=== PATIENT | female | born 1945 | race Caucasian/White ===

== ENCOUNTER 2021-11-25 11:28 | Observation (INO) | payer MEDICARE, SELFPAY ==
[2021-11-25] VITALS (11 sets, daily range): BP systolic 125–182; BP diastolic 61–92; PULSE 53–85; RESP 14–17; TEMP 36.6–37; O2SAT 96–100
--- NOTE | 2021-11-25 11:15 | RT.EKG_ITS ---
APPROVED REPORT Exam: Resting ECG Reason for Exam: syncope Patient Location: E HR:65 bpm ECG Measurements Heart Rate 65 AXIS ND 116 P 67 QRSd 113 QRS 0 QT 432 T -88 QTc 450 Conclusion Sinus rhythm...normal P axis, V-rate 60- 99 Probable left atrial enlargement...P >50mS, <-0.10mV V1 Abnormal T, consider ischemia, diffuse leads...T <-0.20mV, ant/lat/inf
[2021-11-25 11:48] LABS: Abs Immature Grans 0.02 10^3/uL (0.0-0.06); Absolute Basophil Count 0.08 10^3/uL (0.0-0.2); Absolute Eosinophil Count 0.12 10^3/uL (0.0-0.7); Absolute Lymphocyte Count 1.16 10^3/uL (1.2-3.4); Absolute Monocyte Count 0.39 10^3/uL (0.1-0.8); Absolute Neutrophil Count 4.63 10^3/uL (1.2-6.7); Basophils % 1.3; Eosinophils % 1.9; HCT 47.4 % (36.0-46.0); HGB 15.6 g/dL (11.2-15.7); Immature Grans % 0.3; Lymphocytes % 18.1; MCH 30.6 pg (27.0-33.0); MCHC 32.9 % (32.0-36.0); MCV 93.1 fL (80-95); MPV 10.6 fL (8.0-11.0); Monocytes % 6.1; Neutrophils % 72.3; Nucleated RBC 0 %; Platelet Count 194 10^3/uL (130-400); RBC 5.09 10^6/uL (3.93-5.22); RDW 13.7 % (11.7-14.6); RDW-SD 47.7 fL
[2021-11-25 12:11] LABS: ALT 13 U/L (14-59); AST 10 U/L (15-37); Albumin 3.6 g/dL (3.4-5.0); Alkaline Phosphatase 98 U/L (46-116); Anion Gap 8.1 mmol/L (3-11); BUN 10 mg/dL (7-18); Bilirubin, Total 0.7 mg/dL (0.2-1.0); CO2 27.9 mmol/L (21.0-32.0); CREATININE 0.8 mg/dL (0.55-1.02); Calcium 8.6 mg/dL (8.5-10.1); Chloride 105 mmol/L (98-107); Glucose 127 mg/dL (74-106); Magnesium 1.8 mg/dL (1.8-2.4); Potassium 3.8 mmol/L (3.5-5.1); Sodium 141 mmol/L (136-145); TSH (W/Ref FT4) 1.74 uIU/mL (0.36-3.74); Total Protein 6.7 g/dL (6.4-8.2); Troponin I < 50 ng/L (<or=60)
--- NOTE | 2021-11-25 12:45 | DI.CT_ITS ---
Exam(s) CT HEAD WO EXAM: CT HEAD WO CLINICAL HISTORY: syncope, GALAVIZ, possible head injury. TECHNIQUE: Imaging Protocol: Axial computed tomography images with coronal and sagittal reformatted images were created and reviewed COMPARISON: No exams were available for comparison FINDINGS: There are no skull fractures nor fluid in the visualized paranasal sinuses. There is no evidence of intracranial hemorrhage, mass effect, or shift of midline structures. There are no extra-axial fluid collections. The ventricles are not enlarged or shifted and there is no blo od within the ventricular system nor within the basal cisterns. A moderate amount of periventricular hypodensity consistent chronic small vessel ischemic changes. T here is no obvious territorial ischemic infarct. IMPRESSION: Bilateral periventricular white matter hypodensity chronic small vessel disease. No obvious acute te rritorial infarction. No evidence of intracranial hemorrhage. If clinically indicated follow-up MRI can be performed. RADIATION DOSE DELIVERED: 664.1mGy.cm Total DLP DATA REPOSITORY: All CT scans at this facility are submitted to the National Radiology Data Registry (NRDR) Dose Index Registry (DIR) with the [employer] (A[employer]). RADIATION OPTIMIZATION: All CT scans at this facility use at least one of these dose optimization te chniques: automated exposure control; mA and/or kV adjustment per patient size (includes targeted exa ms where dose is matched to clinical indication); or iterative reconstruction.
--- OUTSIDE RECORDS SUMMARY | 2021-11-25 13:33 | XMS_ITS | Encounter Summary ---
:1945 Author Care Team Providers Name Role Phone Judith Nadja Primary Care Provider [phone] Bossman Harrington MD General Surgeon Unavailable Reason for Visit lab follow-up Assessment and Plan 1. Hyperlipidemia check lipids in 6 months to as sess CV risk. ? venipuncture 2. Hypertensive disorder BP controlled when rechecked a t 124/84. Continue current treatment Losartan 25 mg and metoprolol tartrate 100mg bid. Check renal functions in 6 months. ? CBC w/ auto diff ? TSH, serum or plasma ? CMP, serum or plasma Discussion Note: None recorded.Patient educational handouts: No information available. Plan of Care Reminders Provider Appointments [facility]ae[facility] ? Or 15 on or around [place], 05/04/2023 Lab CBC W/ Auto 10/27/2021 [facility] Lab (Internal) ? TSH, Serum or 10/27/2021 [facility] (Internal) ? CMP, Serum or 10/27/2021 [facility] (Internal) ? Venipuncture 10/27/2021 [facility] [place] [facility] Referral None recorded. ? ? Procedures None recorded. ? ? Surgeries None recorded. ? ? Imaging None recorded. ? ? Medications Name Start Date ? ? albuterol sulf 90 mcg/actuation breath activated powde r inhaler,sensor ? Inhale 2 puffs every 4 hours by inhalation route. albuterol sulfate HFA 90 mcg/actuation aerosol inhaler ? Inhale 2 puffs 3 times a day by inhalation route as n eeded for 30 days. aspirin 81 mg tablet,delayed release ? Take 2 tablets every day by oral route for 90 days. loratadine 10 mg tablet ? TAKE 1 TABLET BY MOUTH NEEDED lorazepam 0.5 mg tablet ? Take 1 tablet every 4-6 hours by oral route as needed for 10 days. losartan 25 mg tablet ? Take 1 tablet by mouth once daily metoprolol tartrate 50 mg tablet ? Take 1 tablet twice a day by oral route for 90 days. nitroglycerin 0.4 mg sublingual tablet ? 1 (one) SL Tab: Q 5 MIN X 3 PRN omeprazole 20 mg capsule,delayed release ? Take 1 capsule by mouth once daily Notes: medication reconciled Medications Administered None recorded. Vitals None recorded. Results Lab Results Date Name Specimen Result Interpretation Description Value Range Status Address ? 10/27/2021 CBC W/ Auto BLD ? Wbc 6.7 10*3/uL 5.0-10.0 F [place] Diff 10*3/uL [facility] (Internal) : [address] ? ? BLD ? Rbc 5.11 10*6/uL 4.10-5.30 Final N orth 10*6/uL [facility] (Internal) : [address] ? ? BLD ? Hgb 15.7 g/dL 12.0-16.0 Final Nort h g/dL [facility] (Internal) : [address] ? ? BLD High Hct 47.5 % 37.0-47.0 Final [facility] (Internal) : [address] ? ? BLD ? Mcv 93.0 fL 80.0-96.0 Final [facility] (Internal) : [address] ? ? BLD ? Mch 30.7 pg 26.0-32.0 Final [facility] (Internal) : [address] ? ? BLD ? Mchc 33.1 g/dL 31.0-35.0 Final Nort h g/dL [facility] (Internal) : [address] ? ? BLD ? Rdw 14.0 % 11.5-14.5 Final [facility] (Internal) : [address] ? ? BLD ? Plt 199 10*3/uL 130-450 Final Nort h 10*3/uL [facility] (Internal) : [address] ? ? BLD ? Anc 4.80 10*3/uL ? Final Nort [facility] (Internal) : [address] ? ? BLD High Nlr 3.53 0.00-3.20 Final [facility] (Internal) : [address] ? ? BLD ? Neutro 71.4 % 40.0-75.0 Final [facility] (Internal) : [address] ? ? BLD ? Lymph 20.2 % 20.0-50.0 Final [facility] (Internal) : [address] ? ? BLD ? [place] 5.7 % 2.0-10.0 Final [facility] (Internal) : [address] ? ? BLD ? Eos 1.5 % 1.0-6.0 % Final [facility] (Internal) : [address] ? ? BLD ? Baso 0.9 % 0.0-1.0 % Final [facility] (Internal) : [address] ? ? BLD ? Ig 0.3 % 0.0-0.9 % Final [facility] (Internal) : [address] 10/27/2021 CMP, Serum or S ? g/r 99 mg/dL 74-106 Marielle l North Plasma mg/dL [facility] (Internal) : [address] ? ? S ? Bun 8 mg/dL 7-18 Final North mg/dL [facility] (Internal) : [address] ? ? S ? Crea 0.7 mg/dL 0.6-1.0 Final North mg/dL [facility] (Internal) : [address] ? ? S ? Ca 9.0 mg/dL 8.5-10.1 Final [place] mg/dL [facility] (Internal) : [address] ? ? S ? Na 144 mmol/L 136-145 Final [place] mmol/L [facility] (Internal) : [address] ? ? S ? K 4.1 mmol/L 3.5-5.1 Final [place] mmol/L [facility] (Internal) : [address] ? ? S ? Cl 106 mmol/l 98-107 Final [place] mmol/l [facility] (Internal) : [address] ? ? S ? Tco2 28.2 mmol/L 21.0-32.0 Final No rth mmol/L [facility] (Internal) : [address] ? ? S Low Tp 6.1 g/dL 6.4-8.2 Final [place] g/dL [facility] (Internal) : [address] ? ? S ? Alb 3.6 g/dL 3.4-5.0 Final North g/dL [facility] (Internal) : [address] ? ? S ? Tbil 0.70 mg/dL 0.20-1.00 Final Nor th mg/dL [facility] (Internal) : [address] ? ? S ? Alp 88 U/L 46-116 Final North U/L [facility] (Internal) : [address] ? ? S Low Alt (Sgpt) 13 U/L 14-59 U/L Final [facility] : [address] ? ? S Low Ast (Sgot) 12 U/L 15-37 U/L Final No rth [facility] (Internal) : [address] 10/27/2021 TSH, Serum or S ? Tsh 2.55 uIU/mL 0.36-3.7 4 Final North Plasma uIU/mL [facility] (Internal) : [address] 10/27/2021 Venipuncture ? Location Right ? ? [facility] [place] [facility] [facility]: [address], [place] ? ? ? Needle 21g ? ? [facility] Prim lila Vacutainer [facility] [place] [facility]: [address], [place] ? ? ? Number of 1 ? ? [facility] P rimary Attempts Care [place]: [address], [place] ? ? ? Successful Yes ? ? [facility] [place] [facility] [facility]: [address], [place] ? ? ? Dressing Pressure ? ? [facility] Primary Band-aid Care Applied [place] [facility]: [address] ? ? ? Initials hj ? ? [facility] Pr imary Care [place] [facility]: [address] Allergies Code Code System Name Reaction Severity Onset Animal Dander ? ? ? Iodinated ? ? ? Contrast Media 7407 RxNorm Nicotine ? ? ? 7804 RxNorm Oxycodone ? ? ? 767062 RxNorm Vicodin ? ? ? Problems Name Status Onset Date Source ? Menopausal Symptom Active 04/30/2019 ? Allergic Rhinitis Active 05/15/2019 ? Tobacco User Active 04/22/2020 ? Basal Cell Carcinoma of Nose Active ? His tory Hypothyroidism Active ? History Mixed Hyperlipidemia Active ? History Hyperlipidemia Active ? History Nicotine Dependence Active ? History Insomnia Active ? History Restless Legs Active ? History Retinoschisis Active ? History Hypertensive Disorder Active ? History Conduction Disorder of the Heart Active ? History Kidney Stone Active ? History Blood in Urine Active ? History Epidermoid Cyst of Skin Active ? History Idiopathic Osteoarthritis Active ? Histor y Neck Pain Active ? History Cervical Radiculopathy Active ? History Disorder of Hyperalimentation Active ? Hi story Wheezing Active ? History Cough Active ? History Abdominal Pain Active ? History Prediabetes Active ? History Disorder of Skin And/or Subcutaneous Active ? History Tissue Family History of Cardiovascular Active ? History Disease Artificial Knee Joint Present Active ? Hi story Adult Health Examination Active ? History Finding of Esophagus Active ? History Trochanteric Bursitis of Left Hip Active ? History Pain of Left Shoulder Joint Active ? Hist ory Cardiac Arrhythmia Active ? History Procedures Date Name Performed by ? 05/04/2018 Colonoscopy Information not avai lable Notes: Polyp of cecum; 05/26/2004 09/01/2015 Total Knee Arthroplasty Information not available Notes: left 2015, right 201411/25/2006 Extracorporeal Shock Wave Lithotripsy In formation not available (ES[facility]) 08/22/2004 Arthroplasty Information not avai lable Notes: Left Thumb Arthroplasty 08/22/2000 Total Abdominal Hysterectomy Information not available Notes: w/ BSO ? Tonsillectomy Information not avai lable Vaccine List Vaccine Type COVID-19, mRNA, LNP-S, PF, 100 mcg/0.5 m L dose (Moderna) 10/21/2020?100 mcg 11/17/2020?100 mcg 07/23/2021 influenza, high dose seasonal 08/23/2017?0.5 mL 06/22/2018 06/05/2021 influenza, seasonal, injectable 07/21/2016?0.5 mL influenza, seasonal, injectable, preserv ative free 07/04/2013?0.5 mL 06/06/2014?0.5 mL 07/16/2015?0.5 mL pneumococcal conjugate PCV 13 07/21/2016?0.5 mL pneumococcal polysaccharide PPV23 04/18/2014?0.5 mL Tdap 03/30/2011?0.5 mL zoster live 06/28/2012?0.65 mL Social History Tobacco Smoking Status Heavy Tobacco Smoker (1/2 Notes: 1 pack/day since pack per day) Jun 2017, prior to t hat Pt was smoking 1/2 pack /day What is the highest grade or [id number] level of school you have completed or the highest degree you have received? Any signs of neglect or abuse? no signs of neglect or abuse noted Are you currently employed? N Have you used IV drugs? N Are you blind or do you have N Notes: w ears glasses difficulty seeing? Do you have smoke and carbon Y monoxide detectors in your home? What is your code status? 0 In the 14 days before symptom N onset, have you had close contact with a person who is under investigation for COVID-19 while that person was ill? How much tobacco do you chew? none What was the date of your most 05/25/2021 recent tobacco screening? Do you have an advanced N directive? Do you feel safe at home? Y Do you use any illicit or N recreational drugs? How many years have you smoked 27 tobacco? In the 14 days before symptom N onset, have you had close contact with a laboratory-confirmed COVID-19 while that case was ill? What is your level of alcohol Occasional consumption? Which of your hands is Right dominant? Did the fall result in an N injury? Do you have any pets? Y Notes: cat Have you been to an area known N to be high risk for COVID-19? What is your current pack 30ormorepackyears years? Are you deaf or do you have N serious difficulty hearing? Are you passively exposed to Y smoke? Do you or have you ever used N any other forms of tobacco or nicotine? What is your level of caffeine Occasional Notes: 1-2 cups in the consumption? am Have you recently traveled N abroad? Are there any guns present in Y your home? Have you fallen in the last 3 N months? Family History Relation Problem Onset Age of Age Notes Father Hyperlipidemia (No N/A (No Notes) Information) Father Heart disease (No N/A (No Notes) Information) Sister Cardiomyopathy (No N/A (No Notes) Information) Mother Atrial fibrillation (No N/A (No Note s) Information) Functional Status No Impairment. Past Encounters 10/27/2021 Hyperlipidemia; Hypertensive Disorder Judith Saez [employer]: [address], [place] [id number], Ph. History of Present Illness None recorded. Review of Systems None recorded. Physical Exam None recorded.
--- OUTSIDE RECORDS SUMMARY | 2021-11-25 13:33 | XMS_ITS ---
:1945 Author Care Team Providers Name Role Phone KATHERIN SAEZ Primary Care Provider [phone] JOHNSON UNDERWOOD MD General Surgeon Unavailable Allergies Code Code System Name Reaction Severity Status Onset Animal Dander ? ? Active ? Iodinated ? ? Active ? Contrast Media 7407 RxNorm Nicotine ? ? Active ? 7804 RxNorm Oxycodone ? ? Active ? 339070 RxNorm Vicodin ? ? Active ? Medications Name Status Start Date Stop Date ? ? albuterol sulf 90 mcg/actuation breath activated powder inhaler, sensor Active ? Not available Inhale 2 puffs every 4 hours by inhalation route. albuterol sulfate HFA 90 mcg/actuation aerosol inhaler Active ? Not available Inhale 2 puffs 3 times a day by inhalation route as needed for 30 days. amoxicillin 500 mg capsule Completed ? 10/30 amoxicillin 875 mg tablet Active ? Not av ailable Anoro Ellipta 62.5 mcg-25 mcg/actuation powder for inhalatio n Completed 10/12/2017 10/12/2017 1 (one) Puff: daily aspirin 81 mg tablet,delayed release Active ? Not available Take 2 tablets every day by oral route for 90 days. Aspirin Childrens 81 mg chewable tablet Completed 10/02/19 15 11/05/2014 2 (two) Tablet Chewable: daily azithromycin 250 mg tablet Completed ? 09/08 TAKE 2 TABLETS BY MOUTH ON DAY 1 AND TH EN TAKE 1 TABLET BY MOUTH ONCE A DAY ON DAY 2 THROUGH DAY 5 azithromycin 500 mg tablet Completed 09/21/201609/28 1 (one) Tablet: qd - daily benzonatate 200 mg capsule Completed 07/04/201707/14 1 (one) Capsule: tid - three times a day cefuroxime axetil 250 mg tablet Completed ? 04/13/2018 cefuroxime axetil 500 mg tablet Completed 09/28/2017 09/28/2017 1 (one) Tablet: bid - twice daily cephalexin 500 mg capsule Active ? Not av ailable Chantix Continuing Month Box 1 mg tablet Completed 008 10/13/2007 1 (one) Tablet: Daily Cipro 500 mg tablet Completed 11/26/2008 11/26/2008 1 Tablet: BID ciprofloxacin 250 mg tablet Completed 11/18/2016 04/01/2017 1 (one) Tablet: bid - twice daily Depo-Medrol 80 mg/mL suspension for injection Completed 04/18/2014 1 (one) Suspension: once Dilaudid 2 mg tablet Completed 11/16/2016 11/18/2016 1-2 Tablet: oral every 4 hours as needed donepezil 5 mg tablet Completed ? 06/30/2021 Take 1 tablet every day by oral route for 90 days. Estrace 0.5 mg tablet Completed ? 09/08/2020 1 (one) Tablet: daily flaxseed oil 1,000 mg capsule Completed 06/28/2012 1 Capsule: oral twice daily Flublok Quad (PF) 180 mcg (45 mcg x 4)/0.5 mL IM syrin ge Completed ? 04/03/2021 PHARMACIST ADMINISTERED IMMUNIZATION [facility] fluconazole 150 mg tablet Completed ? 2020 Guaifenesin AC 10 mg-100 mg/5 mL oral liquid Completed 08/14/2015 1 (one) Syrup Syrup: q 6 hours prn cough hydrochlorothiazide 25 mg tablet Completed ? 05/09/2018 one tablet once daily every 3 days ibuprofen 600 mg tablet Completed ? 07/04/20 20 ibuprofen 800 mg tablet Completed 01/02/2016 04/15/20 16 1 (one) Tablet: Three times daily as needed Lamisil 250 mg tablet Completed 06/29/2006 06/29/2006 1 (one) Tablet: Daily Lasix 20 mg tablet Completed ? 07/28/2021 Take 1 tablet every day by oral route at bedtime for 14 days. Levaquin 250 mg tablet Completed 02/13/2007 7 1 (one) Tablet: Daily Lexapro 10 mg tablet Completed 02/09/2008 02/09/2008 1 (one) Tablet: Daily lidocaine (PF) 10 mg/mL (1 %) injection solution Completed 03/27/2014 04/18/2014 1 (one) Solution: once Lipitor 40 mg tablet Completed 09/22/2005 12/29/2005 1 (one) Tablet: Daily lisinopril 5 mg tablet Completed 12/20/2011 2 1 (one) Tablet: daily loratadine 10 mg tablet Active ? Not avai lable TAKE 1 TABLET BY MOUTH NEEDED lorazepam 0.5 mg tablet Active ? Not avai lable Take 1 tablet every 4-6 hours by oral route as needed for 10 da ys. losartan 25 mg tablet Active ? Not availa ble Take 1 tablet by mouth once daily meclizine 12.5 mg tablet Completed ? 021 meclizine 25 mg tablet Completed ? 1 Take 1 tablet 3 times a day by oral route for 90 days. melatonin ER 3 mg tablet,extended release Completed ? 05/09/2018 Take 1 tablet every day by oral route as needed. metoprolol succinate ER 100 mg Completed ? 0 04/22/2020 tablet,extended release 24 hr metoprolol tartrate 100 mg tablet Completed ? 10/07/2021 metoprolol tartrate 50 mg tablet Active ? Not available Take 1 tablet twice a day by oral route for 90 days. Miralax 17 gram oral powder packet Completed 09/11/2015 01/12/2016 17g Packet Packet: by mouth bid nitroglycerin 0.4 mg sublingual tablet Active ? Not available 1 (one) SL Tab: Q 5 MIN X 3 PRN Norvasc 5 mg tablet Unknown 12/21/2005 Not availabl e 1 (one) Tablet: Daily omega 3-pop-gbt-fish oil 1,000 mg (120 mg-180 mg) capsule Comple ophelia 06/28/2012 06/28/2012 1 Capsule: oral twice per day omeprazole 20 mg capsule,delayed release Active ? Not available Take 1 capsule by mouth once daily Percocet 5 mg-325 mg tablet Completed 04/27/201004/22 1 (one) Tablet: every six hours, as needed potassium chloride ER 10 mEq tablet,extended release Completed 10/14/2014 01/12/2016 2 (two) Tablet ER: daily prednisone 10 mg tablet Completed 08/04/2015 08/20/20 15 1 (one) Tablet Tablet: See comments Premarin 0.625 mg tablet Completed 05/06/2010 09/15/2 010 1 (one) Tablet: daily Premarin 0.625 mg/gram vaginal cream Completed 08/31/2005 04/18/2006 1 (one) Not Specified: Daily prochlorperazine maleate 10 mg tablet Completed 06/28/2012 06/28/2012 1 (one) Tablet: Every 6 hours as needed Restasis 0.05 % eye drops in a dropperette Completed 06/2807/24/2014 1 Emulsion: one drop twice dialy ropinirole 0.5 mg tablet Completed 11/05/2014 015 1 (one) Tablet: nightly Sanctura XR 60 mg capsule,extended release Completed 07/2207/22/2008 1 (one) Capsule ER 24HR: daily Senna Plus 8.6 mg-50 mg tablet Completed 09/11/2015 0 01/12/2016 2 (two) Tablet Tablet: Bid - twice daily sertraline 25 mg tablet Completed ? 06/30/20 21 Take 1 tablet every day by oral route for 90 days. sulfacetamide sodium 10 % eye drops Completed 12/16/2005 04/18/2006 2 (two) Drop(s): Four times daily sulfamethoxazole 800 Completed ? 10/30/2018 mg-trimethoprim 160 mg tablet Synthroid 25 mcg tablet Completed 10/06/2004 09/22/19 06 1 (one) Tablet: Daily terconazole 0.8 % vaginal cream Completed 10/26/2016 11/16/2016 1 (one) Application: at bedtime x 3 venlafaxine ER 37.5 mg tablet,extended release 24 hr Completed 11/05/2014 11/20/2014 1 (one) Tablet ER 24HR: daily warfarin 5 mg tablet Completed 09/11/2015 01/12/2016 1 (one) Tablet Tablet: daily Wellbutrin SR 150 mg tablet, 12 hr sustained-release Completed 10/08/2005 04/18/2006 1 (one) Tablet ER 12HR: BID Xanax 0.5 mg tablet Completed 11/19/2008 11/19/2008 1 Tablet: three times daily as needed Zofran 4 mg tablet Completed ? 05/25/2021 1 (one) Tablet: Four times daily as needed for nausea for 10 da ys Zyrtec 10 mg capsule Completed ? 05/15/2019 Take 1 capsule as needed by oral route at bedtime. Notes: medication reconciled Problems Name Status Onset Date Source ? [...] Active ? History Prediabetes Active ? History Active Immunization Unknown ? History History of Urinary Tract Infection Unknown ? History Disorder of Skin And/or Subcutaneous Active ? History Tissue Family History of Cardiovascular Active ? History Disease Artificial Knee Joint Present Active ? Hi story Psychosexual Counseling Unknown ? History Adult Health Examination Active ? History SNOMED CT Concept Unknown ? History Finding of Esophagus Active ? History Procedure Unknown ? History Disorder of Ear Unknown ? History Sulema Infection of Genital Region Unknown ? History Procedure by Method Unknown ? History Trochanteric Bursitis of Left Hip Active ? History Pain of Left Shoulder Joint Active ? Hist ory Cardiac Arrhythmia Active ? History Procedure Unknown ? History Procedures Date Name Performed by ? 05/04/2018 Colonoscopy Information not eliane mccarthy Notes: Polyp of cecum; 05/26/2004 09/01/2015 Total Knee Arthroplasty Information not available Notes: left 2015, right 201411/25/2006 Extracorporeal Shock Wave Lithotripsy In formation not available (ESWL) 08/22/2004 Arthroplasty Information not eliane mccarthy Notes: Left Thumb Arthroplasty 08/22/2000 Total Abdominal Hysterectomy Information not available Notes: w/ BSO ? Tonsillectomy Information not avai lable 04/22/2020 MAMMO, Screening, Tomosynthesis, [facility] (Internal) Bilateral [address] [place] [address] (Work Place) 07/18/2020 XR, Shoulder, 2 or More View [facility] Radiology (Internal) [address] [place] [address] (Work Place) 09/08/2020 Electrocardiogram P[facility]nc [facility] [place] [address] [place] [address] (Work Place) 09/08/2020 Event Monitor [facility] Cardio pulmonary [address] [place] [address] (Work Place) 05/25/2021 MAMMO, Screening, Tomosynthesis, [facility] (Internal) Bilateral [address] [place] [address] (Work Place) 05/25/2021 US, Carotid Artery [facility] Radiology (Internal) [address] [place] [address] (Work Place) 05/25/2021 US, Echocardiogram, Transthoracic, [facility] Radiology (Internal) Complete [address] [place] [address] (Work Place) 05/26/2021 US, Echocardiogram, Transthoracic, [facility] (Internal) Bubble Study [address] [place] [address] (Work Place) 07/06/2021 US, Head + Neck, Soft Tissue [facility] Radiology (Internal) [address] [place] [address] (Work Place) Results Lab Results Date Name Specimen Result Interpretation Description Value Range Status Address ? 10/27/2021 CBC W/ Auto BLD ? Wbc 6.7 10*3/uL 5.0-10.0 F inal [place] Diff 10*3/uL [facility] L ab (Internal) : [address] ? ? BLD ? Rbc 5.11 10*6/uL 4.10-5.30 Final N orth 10*6/uL [facility] L ab (Internal) : [address] ? ? BLD ? Hgb 15.7 g/dL 12.0-16.0 Final Nort h g/dL [facility] L ab (Internal) : [address] ? ? BLD High Hct 47.5 % 37.0-47.0 Final [facility] L ab (Internal) : [address], [place] ? ? BLD ? Mcv 93.0 fL 80.0-96.0 Final [facility] L ab (Internal) : [address] ? ? BLD ? Mch 30.7 pg 26.0-32.0 Final [facility] L ab (Internal) : [address] ? ? BLD ? Mchc 33.1 g/dL 31.0-35.0 [facility] L [facility] (Internal) : [address] ? ? BLD ? Rdw 14.0 % 11.5-14.5 Final [facility] L ab (Internal) : [address] ? ? BLD ? Plt 199 10*3/uL 130-450 Final Nort h 10*3/uL [facility] L ab (Internal) : [address] ? ? BLD ? Anc 4.80 10*3/uL ? Final Nort h [facility] L ab (Internal) : [address] ? ? BLD High Nlr 3.53 0.00-3.20 Final [facility] L ab (Internal) : [address] ? ? BLD ? Neutro 71.4 % 40.0-75.0 Final [facility] L ab (Internal) : [address] ? ? BLD ? Lymph 20.2 % 20.0-50.0 Final [facility] L ab (Internal) : [address] ? ? BLD ? [place] 5.7 % 2.0-10.0 Final [facility] L ab (Internal) : [address] ? ? BLD ? Eos 1.5 % 1.0-6.0 % Final [facility] L ab (Internal) : [address] ? ? BLD ? Baso 0.9 % 0.0-1.0 % Final [facility] L ab (Internal) : [address] ? ? BLD ? Ig 0.3 % 0.0-0.9 % Final [facility] L ab (Internal) : [address] t 10/27/2021 Lipid Panel, S High Chol 214 mg/dL 0-200 Marielle l North Serum mg/dL [facility] (Internal) : [address] ? ? S ? Trig 114 mg/dL 0-150 Final North mg/dL [facility] (Internal) : [address] ? ? S ? Hdl 49 mg/dL 40-60 Final North mg/dL [facility] (Internal) : [address] ? ? S High Ldl 142 mg/dL 0-130 Final [place] mg/dL [facility] (Internal) : [address] t 10/27/2021 CMP, Serum S ? g/r 99 mg/dL 74-106 Final [place] or Plasma mg/dL [facility] (Internal) : [address] ? ? S ? Bun 8 mg/dL 7-18 Final North mg/dL [facility] (Internal) : [address] ? ? S ? Crea 0.7 mg/dL 0.6-1.0 Final North mg/dL [facility] (Internal) : [address] ? ? S ? Ca 9.0 mg/dL 8.5-10.1 Final [place] mg/dL [facility] (Internal) : [address] ? ? S ? Na 144 mmol/L 136-145 Final North mmol/L [facility] (Internal) : [address] ? ? S ? K 4.1 mmol/L 3.5-5.1 Final North mmol/L [facility] (Internal) : [address] ? ? S ? Cl 106 mmol/l 98-107 Final [place] mmol/l [facility] (Internal) : [address] ? ? S ? Tco2 28.2 mmol/L 21.0-32.0 Final No rth mmol/L [facility] (Internal) : [address] ? ? S Low Tp 6.1 g/dL 6.4-8.2 Final [place] g/dL [facility] (Internal) : [address] ? ? S ? Alb 3.6 g/dL 3.4-5.0 Final [place] g/dL [facility] L ab (Internal) : [address] ? ? S ? Tbil 0.70 mg/dL 0.20-1.00 Final Nor th mg/dL [facility] L ab (Internal) : [address] ? ? S ? Alp 88 U/L 46-116 Final North U/L [facility] L ab (Internal) : [address] ? ? S Low Alt (Sgpt) 13 U/L 14-59 U/L Final No rth [facility] L [facility] (Internal) : [address] ? ? S Low Ast (Sgot) 12 U/L 15-37 U/L Final No rth [facility] L ab (Internal) : [address] 10/27/2021 TSH, Serum S ? Tsh 2.55 uIU/mL 0.36-3.74 F inal North or Plasma uIU/mL [facility] L ab (Internal) : [address] 10/27/2021 Venipuncture ? Location Right ? ? P_nc Primary Antecubital Care [place]: [address] [facility], [place] ? ? ? Needle 21g ? ? P_nc Prim lila Vacutainer Care [place]: [address] [facility] [place] ? ? ? Number of 1 ? ? P_nc P rimary Attempts Care [place]: [address] [facility] [place] ? ? ? Successful Yes ? ? P_nc Primary Care [place]: [address] [facility], [place] ? ? ? Dressing Pressure ? ? P_nc Primary Band-aid Care Applied [place]: [address] [facility], [place] ? ? ? Initials hj ? ? P_nc Pr imary Care [place]: [address] [facility] [place] 06/25/2021 CBC W/ Auto BLD ? Wbc 9.0 10*3/uL 5.0-10.0 F inal [place] Diff 10*3/uL [facility] L [facility] (Internal) : [address] ? ? BLD ? Rbc 4.93 10*6/uL 4.10-5.30 Final N orth 10*6/uL [facility] L ab (Internal) : [address] ? ? BLD ? Hgb 15.4 g/dL 12.0-16.0 Final Nort h g/dL [facility] L [facility] (Internal) : [address] ? ? BLD ? Hct 46.1 % 37.0-47.0 Final [facility] L [facility] (Internal) : [address] ? ? BLD ? Mcv 93.5 fL 80.0-96.0 Final [facility] (Internal) : [address] ? ? BLD ? Mch 31.2 pg 26.0-32.0 Final [facility] L ab (Internal) : [address] ? ? BLD ? Mchc 33.4 g/dL 31.0-35.0 Final Nort h g/dL [facility] L ab (Internal) : [address] ? ? BLD ? Rdw 14.3 % 11.5-14.5 Final [facility] (Internal) : [address] ? ? BLD ? Plt 207 10*3/uL 130-450 Final Nort h 10*3/uL [facility] L [facility] (Internal) : [address] ? ? BLD ? Anc 6.59 10*3/uL ? Final Nort h [facility] L ab (Internal) : [address] ? ? BLD High Nlr 3.83 0.00-3.20 Final [facility] L ab (Internal) : [address] ? ? BLD ? Neutro 73.5 % 40.0-75.0 Final [facility] L ab (Internal) : [address] ? ? BLD Low Lymph 19.2 % 20.0-50.0 Final [facility] L ab (Internal) : [address] ? ? BLD ? [place] 4.8 % 2.0-10.0 Final [facility] L ab (Internal) : [address] ? ? BLD ? Eos 1.4 % 1.0-6.0 % Final [facility] L ab (Internal) : [address] ? ? BLD ? Baso 0.8 % 0.0-1.0 % Final [facility] L ab (Internal) : [address] ? ? BLD ? Ig 0.3 % 0.0-0.9 % Final [facility] L ab (Internal) : [address] 06/25/2021 BNP (B-type S High Nt-bnp 1343 pg/mL 0-125 Fin al North Natriuretic pg/mL Count ry Peptide), Hospita l Lab Prohormone (Inter nal): N-terminal, [address] Immunoassay, Blood 06/25/2021 CMP, Serum S ? g/r 106 mg/dL 74-106 Final North or Plasma mg/dL [facility] (Internal) : [address] ? ? S ? Bun 12 mg/dL 7-18 Final North mg/dL [facility] L [facility] (Internal) : [address] ? ? S ? Crea 0.8 mg/dL 0.6-1.0 Final [place] mg/dL [facility] (Internal) : [address] ? ? S ? Ca 8.7 mg/dL 8.5-10.1 Final North mg/dL [facility] L ab (Internal) : [address] ? ? S ? Na 145 mmol/L 136-145 Final North mmol/L [facility] L ab (Internal) : [address] ? ? S ? K 4.1 mmol/L 3.5-5.1 Final North mmol/L [facility] (Internal) : [address] ? ? S High Cl 108 mmol/l 98-107 Final North mmol/l [facility] L ab (Internal) : [address] ? ? S ? Tco2 29.2 mmol/L 21.0-32.0 Final No rth mmol/L [facility] (Internal) : [address] ? ? S Low Tp 6.2 g/dL 6.4-8.2 Final North g/dL [facility] (Internal) : [address] ? ? S ? Alb 3.4 g/dL 3.4-5.0 Final North g/dL [facility] L ab (Internal) : [address] ? ? S ? Tbil 0.90 mg/dL 0.20-1.00 Final Nor th mg/dL [facility] L ab (Internal) : [address] ? ? S ? Alp 85 U/L 46-116 Final North U/L [facility] L ab (Internal) : [address] ? ? S Low Alt (Sgpt) 9 U/L 14-59 U/L Final No rth [facility] L ab (Internal) : [address] ? ? S Low Ast (Sgot) 13 U/L 15-37 U/L Final No rth [facility] L ab (Internal) : [address] 06/25/2021 Troponin I, S ? Trop 7.20 pg/mL 0.00-60.4 F [facility] Serum or 0 pg/mL [facility] L ab (Internal) : [address] t 06/25/2021 TSH, Serum S ? Tsh 1.40 uIU/mL 0.36-3.74 F [facility] or Plasma uIU/mL [facility] L ab (Internal) : [address] t 05/19/2021 CBC W/ Auto BLD ? Wbc 7.6 10*3/uL 5.0-10.0 F [facility] Diff 10*3/uL [facility] L ab (Internal) : [address] ? ? BLD ? Rbc 4.88 10*6/uL 4.10-5.30 Final N orth 10*6/uL [facility] L ab (Internal) : [address] ? ? BLD ? Hgb 15.2 g/dL 12.0-16.0 Final Nort h g/dL [facility] L ab (Internal) : [address] ? ? BLD ? Hct 46.9 % 37.0-47.0 Final [place] % [facility] L ab (Internal) : [address] ? ? BLD High Mcv 96.1 fL 80.0-96.0 Final [facility] L ab (Internal) : [address] ? ? BLD ? Mch 31.1 pg 26.0-32.0 Final [facility] L ab (Internal) : [address] ? ? BLD ? Mchc 32.4 g/dL 31.0-35.0 [facility] L [facility] (Internal) : [address] ? ? BLD High Rdw 14.6 % 11.5-14.5 Final [facility] L ab (Internal) : [address] ? ? BLD ? Plt 222 10*3/uL 130-450 Final Nort h 10*3/uL [facility] L ab (Internal) : [address] ? ? BLD ? Anc 5.15 10*3/uL ? Final Nort h [facility] L ab (Internal) : [address] ? ? BLD ? Nlr 3.05 0.00-3.20 Final [facility] L ab (Internal) : [address] ? ? BLD ? Neutro 67.9 % 40.0-75.0 Final [facility] L ab (Internal) : [address] ? ? BLD ? Lymph 22.3 % 20.0-50.0 Final [facility] L ab (Internal) : [address] ? ? BLD ? [place] 7.3 % 2.0-10.0 Final [facility] L ab (Internal) : [address] ? ? BLD ? Eos 1.3 % 1.0-6.0 % Final [facility] L ab (Internal) : [address] ? ? BLD ? Baso 0.8 % 0.0-1.0 % Final [facility] L ab (Internal) : [address] ? ? BLD ? Ig 0.4 % 0.0-0.9 % Final [facility] L ab (Internal) : [address] t 05/19/2021 CMP, Serum S ? g/r 92 mg/dL 74-106 Final North or Plasma mg/dL [facility] (Internal) : [address] ? ? S ? Bun 11 mg/dL 7-18 Final North mg/dL [facility] (Internal) : [address] ? ? S ? Crea 0.7 mg/dL 0.6-1.0 Final North mg/dL [facility] (Internal) : [address] ? ? S ? Ca 8.6 mg/dL 8.5-10.1 Final North mg/dL [facility] (Internal) : [address] ? ? S High Na 146 mmol/L 136-145 Final North mmol/L [facility] (Internal) : [address] ? ? S ? K 4.7 mmol/L 3.5-5.1 Final North mmol/L [facility] (Internal) : [address] ? ? S High Cl 109 mmol/l 98-107 Final North mmol/l [facility] (Internal) : [address] ? ? S ? Tco2 31.1 mmol/L 21.0-32.0 Final No rth mmol/L [facility] (Internal) : [address] ? ? S ? Tp 6.4 g/dL 6.4-8.2 Final North g/dL [facility] (Internal) : [address] ? ? S ? Alb 3.4 g/dL 3.4-5.0 Final North g/dL [facility] (Internal) : [address] ? ? S ? Tbil 0.60 mg/dL 0.20-1.00 Final Nor th mg/dL [facility] (Internal) : [address] ? ? S ? Alp 73 U/L 46-116 Final North U/L [facility] (Internal) : [address] ? ? S Low Alt (Sgpt) 8 U/L 14-59 U/L Final No rth [facility] (Internal) : [address] ? ? S Low Ast (Sgot) 10 U/L 15-37 U/L Final No rth [facility] L [facility] (Internal) : [address] 09/08/2020 CBC W/ Auto BLD ? Wbc 8.2 10*3/uL 5.0-10.0 F inal North Diff 10*3/uL [facility] L [facility] (Internal) : [address] ? ? BLD ? Rbc 5.14 10*6/uL 4.10-5.30 Final N orth 10*6/uL [facility] L ab (Internal) : [address] ? ? BLD ? Hgb 15.7 g/dL 12.0-16.0 Final Nort h g/dL [facility] L ab (Internal) : [address] ? ? BLD High Hct 48.8 % 37.0-47.0 Final [facility] L ab (Internal) : [address] ? ? BLD ? Mcv 94.9 fL 80.0-96.0 Final [facility] (Internal) : [address] ? ? BLD ? Mch 30.5 pg 26.0-32.0 Final [facility] L ab (Internal) : [address] ? ? BLD ? Mchc 32.2 g/dL 31.0-35.0 Final Nort h g/dL [facility] L [facility] (Internal) : [address] ? ? BLD ? Rdw 13.9 % 11.5-14.5 Final [facility] L ab (Internal) : [address] ? ? BLD ? Plt 252 10*3/uL 130-450 Final Nort h 10*3/uL [facility] L [facility] (Internal) : [address] ? ? BLD ? Anc 5.62 10*3/uL ? Final Nort h [facility] L ab (Internal) : [address] ? ? BLD ? Nlr 2.94 0.00-3.20 Final [facility] L ab (Internal) : [address] ? ? BLD ? Neutro 68.4 % 40.0-75.0 Final North % [facility] (Internal) : [address] ? ? BLD ? Lymph 23.3 % 20.0-50.0 Final North % [facility] (Internal) : [address] ? ? BLD ? [place] 5.1 % 2.0-10.0 Final [facility] (Internal) : [address] ? ? BLD ? Eos 1.7 % 1.0-6.0 % Final [facility] L ab (Internal) : [address] ? ? BLD ? Baso 1.0 % 0.0-1.0 % Final [facility] [facility] L [facility] (Internal) : [address] ? ? BLD ? Ig 0.5 % 0.0-0.9 % Final [facility] L ab (Internal) : [address] t 09/08/2020 BMP, Serum S ? g/r 95 mg/dL 74-106 Final [facility] or [facility] mg/dL [facility] : [address] ? ? S ? Bun 9 mg/dL 7-17 Final [facility] mg/dL [facility] : [address] ? ? S ? Crea 0.70 mg/dL 0.52-1.04 Final Nor th mg/dL [facility] ([facility]) : [address] ? ? S ? Ca 9.2 mg/dL 8.4-10.2 Final [facility] mg/dL [facility] ([facility] : [address] ? ? S ? Na 141 mmol/L 137-145 Final [facility] mmol/L [facility] ([facility] : [address] ? ? S ? K 4.2 mmol/L 3.5-5.1 Final [facility] mmol/L [facility] ([facility]) : [address] ? ? S ? Cl 104 mmol/L 98-107 Final [facility] mmol/L [facility] ([facility] : [address] ? ? S ? Tco2 29.0 mmol/L 22.0-30.0 Final No rth mmol/L [facility] ([facility]) : [address] t 09/08/2020 Thyroid S ? Tsh 2.08 u[IU]/mL 0.47-4.68 Fi nal [place], u[IU]/mL [facility] Serum Hospital L ab (Internal) : [address] 09/08/2020 Electrocardi ? Rate & 50. sinus ? ? P_nc Primary ogram Rhythm pramod [facility] [place]: [address], [place] ? ? ? Qrs 0.10 ? ? P_nc Prima ry [facility] [place]: [address], [place] ? ? ? CT 0.10 ? ? P_nc Prima ry Interval [facility] [place]: [address], [place] ? ? ? QT 0.46 ? ? P_nc Prima ry Interval [facility] [place]: [address], [place] 04/22/2020 Urinalysis, ? Color Mackenzie ? ? P _nc Primary Dipstick, Care Reflex Micro [place]: [address], [place] ? ? ? Appearance Clear ? ? P_nc Primary [facility] [place]: [address], [place] ? ? ? Glucose Normal ? ? P_nc Aisha kati [facility] [place]: [address], [place] ? ? ? Bilirubin Small ? ? P_nc P rimary [facility] [place]: [address], [place] ? ? ? Ketones Negative ? ? P_nc P rimary [facility] [place]: [address], [place] ? ? ? Specific 1.030 ? ? P_nc Pr imary [facility] [place]: [address], [place] ? ? ? Blood Negative ? ? P_nc Aisha kati [facility] [place]: [address], [place] ? ? ? Ph 7.0 ? ? P_nc Prima ry [facility] [place]: [address], [place] ? ? ? Protein Negative ? ? P_nc P rimary [facility] [place]: [address], [place] ? ? ? Urobilinog 0.2 ? ? P_nc Primary en [facility] [place]: [address], [place] ? ? ? Nitrite negative ? ? P_nc P rimary [facility] [place]: [address], [place] ? ? ? Leukocyte Negative ? ? P_nc Primary Esterase [facility] [place]: [address], [place] 10/18/2019 Lipid Panel, S ? Chol 193 mg/dL 50-200 Marielle l [facility] Serum mg/dL [facility] : [address] ? ? S ? Trig 93 mg/dL 10-150 Final [facility] mg/dL [facility] ([facility]) : [address] ? ? S ? Hdl 50 mg/dL 40-60 Final [facility] mg/dL [facility] ([facility] : [address] ? ? S ? Ldl 124 mg/dL 0-130 Final [facility] mg/dL [facility] ([facility]) : [address] 10/18/2019 CMP, Serum S High g/r 108 mg/dL 74-106 Final [place] or Plasma mg/dL [facility] ([facility] : [address] ? ? S ? Bun 11 mg/dL 7-17 Final [facility] mg/dL [facility] ([facility] : [address] ? ? S ? Crea 0.60 mg/dL 0.52-1.04 Final [facility] th mg/dL [facility] ([facility] : [address] ? ? S ? Ca 8.9 mg/dL 8.4-10.2 Final [facility] mg/dL [facility] : [address] ? ? S ? Na 140 mmol/L 137-145 Final [facility] mmol/L [facility] : [address] ? ? S ? K 3.6 mmol/L 3.5-5.1 Final [facility] mmol/L [facility] : [address] ? ? S ? Cl 107 mmol/L 98-107 Final [facility] mmol/L [facility] : [address] ? ? S ? Tco2 24.0 mmol/L 22.0-30.0 Final No rth mmol/L [facility] ([facility]) : [address] ? ? S Low Tp 6.2 g/dL 6.3-8.2 Final [place] g/dL [facility] L ab (Internal) : [address] ? ? S ? Alb 3.8 g/dL 3.5-5.0 Final [place] g/dL [facility] L ab (Internal) : [address] ? ? S ? Tbil 0.7 mg/dL 0.2-1.3 Final [place] mg/dL [facility] L [facility] (Internal) : [address] ? ? S ? Alp 72 U/L 38-126 Final [place] U/L [facility] L ab (Internal) : [address] ? ? S ? Alt (Sgpt) 10 U/L 9-52 U/L Final [facility] : [address] ? ? S ? Ast (Sgot) 19 U/L 14-36 U/L Final [facility] rth [facility] : [address] 10/27/2018 CBC W/ Auto BLD - Wbc 9.2 10*3/uL 5.0-10.0 F inal [place] Diff 10*3/uL [facility] ([facility] : [address] ? ? BLD - Rbc 5.27 10*6/uL 4.10-5.30 Final N orth 10*6/uL [facility] ([facility] : [address] ? ? BLD High Hgb 16.1 g/dL 12.0-16.0 Final Nort h g/dL [facility] ([facility]) : [address] ? ? BLD High Hct 48.2 % 37.0-47.0 Final [place] % [facility] L ab (Internal) : [address] ? ? BLD - Mcv 91.5 fL 80.0-96.0 Final [facility] L ab (Internal) : [address] ? ? BLD - Mch 30.6 pg 26.0-32.0 Final [place] pg [facility] L ab (Internal) : [address] ? ? BLD - Mchc 33.4 g/dL 31.0-35.0 Final Nort h g/dL [facility] L [facility] (Internal) : [address] ? ? BLD - Rdw 14.2 % 11.5-14.5 Final [facility] L ab (Internal) : [address] ? ? BLD - Plt 280 10*3/uL 130-450 Final Nort h 10*3/uL [facility] L ab (Internal) : [address] ? ? BLD - Anc 6.86 10*3/uL ? Final Nort h [facility] L ab (Internal) : [address] ? ? BLD - Neutro 74.7 % 40.0-75.0 Final [facility] L ab (Internal) : [address] ? ? BLD Low Lymph 17.3 % 20.0-50.0 Final [facility] L ab (Internal) : [address] ? ? BLD - [place] 5.3 % 2.0-10.0 Final [facility] L ab (Internal) : [address] ? ? BLD - Eos 1.3 % 1.0-6.0 % Final [facility] L ab (Internal) : [address] ? ? BLD - Baso 0.9 % 0.0-1.0 % Final [facility] L ab (Internal) : [address] ? ? BLD - Ig 0.5 % 0.0-0.9 % Final [facility] L [facility] (Internal) : [address] 10/27/2018 CMP, Serum S High g/r 108 mg/dL 74-106 Final [place] or Plasma mg/dL [facility] L ab (Internal) : [address] ? ? S - Bun 10 mg/dL 7-17 Final [place] mg/dL [facility] L ab (Internal) : [address] ? ? S - Crea 0.60 mg/dL 0.52-1.04 Final Nor th mg/dL [facility] ([facility] : [address] ? ? S - Ca 9.0 mg/dL 8.4-10.2 Final [facility] mg/dL [facility] ([facility] : [address] ? ? S - Na 140 mmol/L 137-145 Final [facility] mmol/L [facility] : [address] ? ? S - K 4.0 mmol/L 3.5-5.1 Final [facility] mmol/L [facility] ([facility]) : [address] ? ? S - Cl 103 mmol/L 98-107 Final [facility] mmol/L [facility] ([facility]) : [address] ? ? S - Tco2 28.0 mmol/L 22.0-30.0 Final No rth mmol/L [facility] (Internal) : [address] ? ? S - Tp 6.9 g/dL 6.3-8.2 Final [facility] g/dL [facility] ([facility] : [address] ? ? S - Alb 4.0 g/dL 3.5-5.0 Final [facility] g/dL [facility] : [address] ? ? S - Tbil 0.9 mg/dL 0.2-1.3 Final [facility] mg/dL [facility] ([facility] : [address] ? ? S - Alp 74 U/L 38-126 Final [facility] U/L [facility] : [address] ? ? S - Alt (Sgpt) <10 U/L 9-52 U/L Final [facility] ([facility] : [address] ? ? S - Ast (Sgot) 18 U/L 14-36 U/L Final [facility]th [facility] ([facility] : [address] 10/27/2018 Lipid Panel, S - Chol 180 mg/dL 50-200 Marielle l [facility] Serum mg/dL [facility] (Internal) : [address] ? ? S - Trig 137 mg/dL 10-150 Final [place] mg/dL [facility] L ab (Internal) : [address] ? ? S Low Hdl 37 mg/dL 40-60 Final [place] mg/dL [facility] L ab (Internal) : [address] ? ? S - Ldl 116 mg/dL 0-130 Final [place] mg/dL [facility] L ab (Internal) : [address] 10/27/2018 TSH, Serum S - Tsh 1.83 u[IU]/mL 0.47-4.68 Final [place] or Plasma u[IU]/mL [facility] L [facility] (Internal) : [address] 07/26/2018 Culture UR - Final microbiology ? Final [place] ([place] results [facility] Lab Urine (Internal) : [address] 05/04/2018 Pathology TISS - Report results below ? Fi nal [facility] L ab (Internal) : [address] 04/07/2017 CBC W/ Auto BLD ? Wbc 7.0 10*3/uL 5.0-10.0 F inal [place] Diff 10*3/uL [facility] L ab (Internal) : [address] ? ? BLD ? Rbc 4.96 10*6/uL 4.10-5.30 Final N orth 10*6/uL [facility] L ab (Internal) : [address] ? ? BLD ? Hgb 15.3 g/dL 12.0-16.0 Final Nort h g/dL [facility] L ab (Internal) : [address] ? ? BLD ? Hct 46.3 % 37.0-47.0 Final [place] % [facility] L ab (Internal) : [address] ? ? BLD ? Mcv 93.3 fL 80.0-96.0 Final [facility] : [address] ? ? BLD ? Mch 30.8 pg 26.0-32.0 Final [place] pg [facility] L ab (Internal) : [address] ? ? BLD ? Mchc 33.0 g/dL 31.0-35.0 Final Nort h g/dL [facility] L ab (Internal) : [address] ? ? BLD High Rdw 14.6 % 11.5-14.5 Final [facility] L ab (Internal) : [address] ? ? BLD ? Plt 217 10*3/uL 130-450 Final Nort h 10*3/uL [facility] L ab (Internal) : [address] ? ? BLD ? Anc 4.61 10*3/uL ? Final Nort h [facility] L ab (Internal) : [address] ? ? BLD ? Neutro 65.9 % 40.0-75.0 Final [facility] L ab (Internal) : [address] ? ? BLD ? Lymph 24.6 % 20.0-50.0 Final [facility] L ab (Internal) : [address] ? ? BLD ? [place] 6.4 % 2.0-10.0 Final [facility] L ab (Internal) : [address] ? ? BLD ? Eos 1.7 % 1.0-6.0 % Final [facility] L ab (Internal) : [address] ? ? BLD ? Baso 1.0 % 0.0-1.0 % Final [facility] L ab (Internal) : [address] ? ? BLD ? Ig 0.4 % 0.0-0.9 % Final [facility] L ab (Internal) : [address] 04/07/2017 TSH, Serum S ? Tsh 2.10 u[IU]/mL 0.47-4.68 Final [place] or Plasma u[IU]/mL [facility] (Internal) : [address] 04/07/2017 CMP, Serum S ? g/r 97 mg/dL 74-106 Final [place] or Plasma mg/dL [facility] L ab (Internal) : [address] ? ? S ? Bun 13 mg/dL 7-17 Final [place] mg/dL [facility] L ab (Internal) : [address] ? ? S ? Crea 0.70 mg/dL 0.52-1.04 Final Nor th mg/dL [facility] (Internal) : [address] ? ? S ? Ca 9.1 mg/dL 8.4-10.2 Final [facility] mg/dL [facility] (Internal) : [address] ? ? S ? Na 141 mmol/L 137-145 Final [facility] mmol/L [facility] ([facility]) : [address] ? ? S ? K 4.1 mmol/L 3.5-5.1 Final [facility] mmol/L [facility] (Internal) : [address] ? ? S ? Cl 106 mmol/L 98-107 Final [facility] mmol/L [facility] (Internal) : [address] ? ? S ? Tco2 28.0 mmol/L 22.0-30.0 Final No rth mmol/L [facility] (Internal) : [address] ? ? S ? Tp 6.5 g/dL 6.3-8.2 Final [facility] g/dL [facility] (Internal) : [address] ? ? S ? Alb 4.0 g/dL 3.5-5.0 Final [facility] g/dL [facility] (Internal) : [address] ? ? S ? Tbil 0.8 mg/dL 0.2-1.3 Final [facility] mg/dL [facility] (Internal) : [address] ? ? S ? Alp 78 U/L 38-126 Final [facility] U/L [facility] ([facility]) : [address] ? ? S ? Alt (Sgpt) 18 U/L 9-52 U/L Final [facility] ([facility] : [address] ? ? S ? Ast (Sgot) 24 U/L 14-36 U/L Final No [facility]th [facility] (Internal) : [address] 11/16/2016 Culture, UR ? Final microbiology ? Final [facility] Urine results [facility] (Internal) : [address] 11/16/2016 sensitivitie MISC ? Sens* ? ? Final North s[I] [facility] ab (Internal) : [address] ? Venipuncture ? Location Right Hand ? ? P_nc Primary [facility] [place]: [address], [place] ? ? ? Needle 23g Butterfly ? ? P_ nc Primary [facility] [place]: [address] [...] Care Applied [place]: [address], [place] ? ? ? Initials hj ? ? P_nc Pr imary [facility] [place]: [address], [place] ? Venipuncture ? Location Right Hand ? ? P_nc Primary [facility] [place]: [address], [place] ? ? ? Needle 23g Butterfly ? ? P_ nc Primary [facility] [place] [facility]: [address] [...] Care Applied [place]: [address], [place] ? ? ? Initials hj ? ? P_nc Pr imary [facility] [place]: [address], [place] ? Urinalysis, ? Color Yellow ? ? P_nc Primary Dipstick, Care Reflex Micro [place]: [address], [place] ? ? ? Appearance Clear ? ? P_nc Primary [facility] [place]: [address], [place] ? ? ? Glucose Normal ? ? P_nc Aisha kati [facility] [place]: [address], [place] ? ? ? Bilirubin Small ? ? P_nc P rimary [facility] [place]: [address], [place] ? ? ? Ketones Trace ? ? P_nc Aisha kati [facility] [place]: [address], [place] ? ? ? Specific 1.020 ? ? P_nc Pr imary [facility] [place]: [address], [place] ? ? ? Blood Negative ? ? P_nc Aisha kati [facility] [place] [facility]: [address], [place] ? ? ? Ph 7.0 ? ? P_nc Prima ry Care [place] [facility]: [address], [place] ? ? ? Protein Negative ? ? P_nc P rimary [facility] [place] [facility] [facility]: [address], [place] ? ? ? Urobilinog 1 ? ? P_nc Primary en [facility] [place]: [address], [place] ? ? ? Nitrite negative ? ? P_nc P rimary [facility] [place] [facility] [facility]: [address], [place] ? ? ? Leukocyte Negative ? ? P_nc Primary Esterase [facility] [place]: [address], [place] ? Visual ? R Eye 20/20 ? ? P_nc Prima ry Acuity* Corrected [facility] [place] [facility]: [address], [place] ? ? ? L Eye 20/20 ? ? P_nc Prima ry Corrected Care [place] [facility] [facility]: [address], [place] ? Urinalysis, ? Color Yellow ? ? P_nc Primary Dipstick, Care Reflex [facility] [place]: [address], [place] ? ? ? Appearance Clear ? ? P_nc Primary [facility] [place] [facility] [facility]: [address], [place] ? ? ? Glucose Normal ? ? P_nc Aisha kati [facility] [place] [facility]: [address], [place] ? ? ? Bilirubin Small ? ? P_nc P rimary [facility] [place]: [address], [place] ? ? ? Ketones Negative ? ? P_nc P rimary [facility] [place] [facility] [facility]: [address], [place] ? ? ? Specific 1.025 ? ? P_nc Pr imary [facility] [place] [facility]: [address], [place] ? ? ? Blood Negative ? ? P_nc Aisha kati [facility] [place] [facility]: [address], [place] ? ? ? Ph 6.0 ? ? P_nc Prima ry Care [place] [facility] [facility]: [address], [place] ? ? ? Protein Negative ? ? P_nc P rimary Care [place] [facility] [facility]: [address], [place] ? ? ? Urobilinog 0.2 ? ? P_nc Primary en [facility] [place] [facility] [facility]: [address], [place] ? ? ? Nitrite negative ? ? P_nc P rimary [facility] [place]: [address], [place] ? ? ? Leukocyte Negative ? ? P_nc Primary Esterase [facility] [place]: [address], [place] Past Encounters 10/27/2021 Hyperlipidemia; Hypertensive Disorder Katherin Saez, LIP READING TEACHER: [address], [place] [address], Ph. 07/28/2021 Wheezing; Chest Pain; Cough Katherin Saez, LIP READING TEACHER: [address], [place] [address], Ph. 06/30/2021 Tight Chest; Congestive Heart Failure; I ntermittent Palpitations Katherin Saez, LIP READING TEACHER: [address], [place] [address], Ph. 05/25/2021 Active or Passive Immunization; Adult He alth Examination; Transient Cerebral Ischemia; Mild Cognitive Disorder; Anxiety Katherin Saez LIP READING TEACHER: [address], [place] [address], Ph. 05/19/2021 Hypertensive Disorder Katherin Saez LIP READING TEACHER: [address], [place] [address], Ph. 04/06/2021 Anxiety; Vertigo; Dupuytren's Contractur e; Multiple Actinic Keratoses Katherin Saez, LIP READING TEACHER: [address], [place] [address], Ph. 04/01/2021 Foreign Body of Foot Jerrell Melgoza, DO: [address], [place] [address], Ph. 11/14/2020 Hypertensive Disorder; Hyperlipidemia; A ctinic Keratosis; Intermittent Palpitations Katherin Saez, LIP READING TEACHER: [address], [place] [address], Ph. 09/08/2020 Intermittent Palpitations; Anxiety Katherin Saez, LIP READING TEACHER: [address], [place] [address], Ph. 07/18/2020 Pain of Right Shoulder Joint Katherin Saez, LIP READING TEACHER: [address], [place] [address], Ph. 07/04/2020 Acute Otitis Media; Candidiasis of Vagin a Katherin Saez, LIP READING TEACHER: [address], [place] [address], Ph. Social History Tobacco Smoking Status Heavy Tobacco Smoker (1/2 Notes: 1 pack/day since Nov pack per day) 2017, prior to that Pt was smoking 1/2 pack/day Vaccine List Vaccine Type COVID-19, mRNA, LNP-S, PF, 100 mcg/0.5 m L dose (Moderna) 10/21/2020?100 mcg 11/17/2020?100 mcg 07/23/2021 influenza, high dose seasonal 08/23/2017?0.5 mL 06/22/2018 06/05/2021 influenza, seasonal, injectable 07/21/2016?0.5 mL influenza, seasonal, injectable, preserv ative free 07/04/2013?0.5 mL 06/06/2014?0.5 mL 07/16/2015?0.5 mL pneumococcal conjugate PCV 13 07/21/2016?0.5 mL pneumococcal polysaccharide PPV23 04/18/2014?0.5 mL Tdap 03/30/2011?0.5 mL zoster live 06/28/2012?0.65 mL Plan of Care Reminders Provider Appointments None ? ? recorded. Lab None ? ? recorded. Referral None ? ? recorded. Procedures None ? ? recorded. Surgeries None ? ? recorded. Imaging None ? ? recorded. Vitals 07/28/2021 09:20AM Follow Up 20 Height Weight BMI Blood Pressure 161.29 cm 103.87 kg 39.9 kg/m2 128/78 mm[Hg] 06/30/2021 09:00AM Follow Up 20 Height Weight BMI Blood Pressure 161.29 cm 105.23 kg 40.5 kg/m2 142/80 mm[Hg] 05/25/2021 09:40AM AWV 40 Height Weight BMI Blood Pressure 161.29 cm 107.27 kg 41.2 kg/m2 144/82 mm[Hg] 04/06/2021 03:00PM Follow Up 20 Height 161.29 cm 04/01/2021 03:40PM Acute 20 Height Weight BMI Blood Pressure 161.29 cm 148/86 mm[Hg] 11/14/2020 09:20AM Follow Up 20 Height Weight BMI Blood Pressure 161.29 cm 108.89 kg 41.9 kg/m2 158/88 mm[Hg] 09/08/2020 09:40AM Acute 20 Height Weight BMI Blood Pressure 161.29 cm 109.94 kg 42.3 kg/m2 174/88 mm[Hg] 07/18/2020 02:00PM Acute 20 Height Weight BMI Blood Pressure 161.29 cm 109.06 kg 41.9 kg/m2 146/84 mm[Hg] 07/04/2020 08:40AM Follow Up 20 Height Weight BMI Blood Pressure 161.29 cm 108.55 kg 41.7 kg/m2 142/90 mm[Hg] 04/22/2020 09:00AM CPE 40 Height Weight BMI Blood Pressure 161.29 cm 106.59 kg 41 kg/m2 120/70 mm[Hg] 10/22/2019 09:20AM Follow Up 20 Height Weight BMI Blood Pressure 161.29 cm 109.49 kg 42.1 kg/m2 138/88 mm[Hg] 04/30/2019 08:40AM Follow Up 20 Height Weight BMI Blood Pressure 161.29 cm 107.95 kg 41.5 kg/m2 138/80 mm[Hg] 01/03/2019 10:00AM Acute 20 Height Weight BMI Blood Pressure 161.29 cm 107.5 kg 41.3 kg/m2 152/88 mm[Hg] 10/30/2018 09:40AM AWV 40 Height Weight BMI Blood Pressure 161.29 cm 106.59 kg 41 kg/m2 120/92 mm[Hg] 07/26/2018 12:40PM Acute 20 Height Weight BMI Blood Pressure 161.29 cm 108.41 kg 41.7 kg/m2 144/86 mm[Hg] 05/09/2018 08:00AM Follow Up 20 Height Weight BMI Blood Pressure 161.29 cm 107.05 kg 41.1 kg/m2 138/78 mm[Hg] 04/13/2018 12:45PM Office 15 Height 161.29 cm 11/09/2017 Blood Pressure 130/80 mm[Hg] 10/12/2017 Blood Pressure 122/82 mm[Hg] 09/28/2017 Height Weight Blood Pressure 161.29 cm 105.69 kg 120/80 mm[Hg] 09/16/2017 Blood Pressure 120/72 mm[Hg] 08/23/2017 Height Weight Blood Pressure 161.29 cm 106.59 kg 130/80 mm[Hg] 08/02/2017 Height Weight Blood Pressure 161.29 cm 107.95 kg 140/80 mm[Hg] 07/04/2017 Weight Blood Pressure 97.07 kg 162/92 mm[Hg] 04/07/2017 Height Weight Blood Pressure 161.29 cm 108.41 kg 138/86 mm[Hg] 02/02/2017 Height Weight Blood Pressure 161.29 cm 108.41 kg 146/80 mm[Hg] 12/16/2016 Height Weight Blood Pressure 161.29 cm 107.95 kg 140/80 mm[Hg] 11/16/2016 Height Weight Blood Pressure 161.29 cm 108.41 kg 110/80 mm[Hg] 09/21/2016 Height Weight Blood Pressure 161.29 cm 107.95 kg 130/70 mm[Hg] 07/21/2016 Height Weight Blood Pressure 161.29 cm 108.41 kg 138/90 mm[Hg] 04/15/2016 Height Weight Blood Pressure 160.02 cm 107.95 kg 138/90 mm[Hg] 01/14/2016 Height Weight Blood Pressure 160.02 cm 106.14 kg 132/78 mm[Hg] 01/12/2016 Height Weight Blood Pressure 160.02 cm 105.69 kg 125/70 mm[Hg] 11/05/2015 Height Weight Blood Pressure 160.02 cm 104.78 kg 140/72 mm[Hg] 08/04/2015 Height Blood Pressure 160.02 cm 160/88 mm[Hg] 07/14/2015 Height Weight Blood Pressure 160.02 cm 108.86 kg 138/84 mm[Hg] 05/28/2015 Height Weight Blood Pressure 160.02 cm 105.69 kg 130/80 mm[Hg] 05/21/2015 Height Weight Blood Pressure 160.02 cm 105.69 kg 132/82 mm[Hg] 04/16/2015 Height Weight Blood Pressure 160.02 cm 107.27 kg 148/72 mm[Hg] 03/03/2015 Height Weight Blood Pressure 160.02 cm 105.69 kg 136/78 mm[Hg] 12/04/2014 Weight Blood Pressure 106.59 kg 124/74 mm[Hg] 11/05/2014 Weight Blood Pressure 102.97 kg 126/76 mm[Hg] 10/02/2014 Weight Blood Pressure 105.69 kg 128/84 mm[Hg] 09/13/2014 Weight Blood Pressure 107.68 kg 100/60 mm[Hg] 08/06/2014 Weight Blood Pressure 107.5 kg (1) 124/78 mm[Hg] (2) 142/86 mm[Hg] 07/24/2014 Weight Blood Pressure 108.86 kg 140/86 mm[Hg] 06/06/2014 Height Weight Blood Pressure 160.02 cm 108.86 kg 138/88 mm[Hg] 04/18/2014 Weight Blood Pressure 112.94 kg 138/82 mm[Hg] 03/27/2014 Weight Blood Pressure 115.62 kg 130/78 mm[Hg] 01/04/2014 Weight Blood Pressure 115.62 kg 146/78 mm[Hg] 01/03/2014 Weight Blood Pressure 115.21 kg 126/86 mm[Hg] 01/01/2014 Weight Blood Pressure 115.21 kg 130/84 mm[Hg] 11/20/2013 Weight Blood Pressure 116.35 kg 148/82 mm[Hg] 09/25/2013 Weight Blood Pressure 114.94 kg 136/80 mm[Hg] 07/04/2013 Height Weight Blood Pressure 160.02 cm 113.53 kg 138/76 mm[Hg] 04/18/2013 Weight Blood Pressure 113.13 kg 148/78 mm[Hg] 01/01/2013 Height Weight Blood Pressure 160.02 cm 111.63 kg 122/72 mm[Hg] 07/31/2012 Weight Blood Pressure 110.9 kg 124/68 mm[Hg] 06/28/2012 Height Weight Blood Pressure 160.02 cm 109 kg 150/90 mm[Hg] 05/09/2012 Height Weight Blood Pressure 160.02 cm 109.68 kg 164/88 mm[Hg] 03/24/2012 Height Weight Blood Pressure 160.02 cm 109.68 kg 173/97 mm[Hg] 02/04/2012 Height Weight Blood Pressure 160.02 cm 109.68 kg 156/90 mm[Hg] 12/27/2011 Height Weight Blood Pressure 160.02 cm 109.68 kg 148/84 mm[Hg] 11/24/2011 Weight Blood Pressure 110.36 kg (1) 166/96 mm[Hg] (2) 172/100 mm[Hg] 03/30/2011 Height Weight Blood Pressure 160.66 cm 108.23 kg (1) 158/88 mm[Hg] (2) 160/90 mm[Hg] 05/06/2010 Blood Pressure 142/84 mm[Hg] 04/22/2010 Weight Blood Pressure 107.86 kg 150/92 mm[Hg] 11/28/2009 Weight Blood Pressure 112.49 kg (1) 142/98 mm[Hg] (2) 144/90 mm[Hg] 09/19/2009 Weight Blood Pressure 111.13 kg 140/88 mm[Hg] 03/19/2009 Weight Blood Pressure 109.77 kg (1) 150/90 mm[Hg] (2) 140/82 mm[Hg] 12/11/2008 Weight Blood Pressure 109.32 kg (1) 138/82 mm[Hg] (2) 150/92 mm[Hg] 11/19/2008 Blood Pressure 126/80 mm[Hg] 11/18/2008 Weight Blood Pressure 109.09 kg 130/80 mm[Hg] 07/22/2008 Weight Blood Pressure 108.86 kg 152/90 mm[Hg] 02/09/2008 Weight Blood Pressure 112.49 kg 160/90 mm[Hg] 12/22/2007 Weight Blood Pressure 109.32 kg 124/78 mm[Hg] 11/14/2007 Weight Blood Pressure 109.77 kg (1) 140/90 mm[Hg] (2) 140/100 mm[Hg] 10/18/2007 Weight Blood Pressure 110.22 kg 138/76 mm[Hg] 10/13/2007 Weight Blood Pressure 107.95 kg 160/90 mm[Hg] 02/13/2007 Weight Blood Pressure 106.59 kg (1) 120/80 mm[Hg] (2) 130/80 mm[Hg] 10/26/2006 Weight Blood Pressure 107.05 kg 144/86 mm[Hg] 06/29/2006 Weight Blood Pressure 107.5 kg (1) 152/84 mm[Hg] (2) 162/86 mm[Hg] 06/17/2006 Weight Blood Pressure 105.69 kg (1) 138/80 mm[Hg] (2) 138/78 mm[Hg] 04/18/2006 Weight Blood Pressure 107.95 kg 144/82 mm[Hg] 12/29/2005 Blood Pressure 104/64 mm[Hg] 12/21/2005 Weight Blood Pressure 109.77 kg (1) 142/78 mm[Hg] (2) 144/82 mm[Hg] 12/16/2005 Weight Blood Pressure 109.77 kg 122/78 mm[Hg] 10/08/2005 Weight Blood Pressure 108.86 kg 116/68 mm[Hg] 09/21/2005 Weight Blood Pressure 108.41 kg (1) 136/90 mm[Hg] (2) 140/90 mm[Hg] 08/31/2005 Weight Blood Pressure 109.32 kg (1) 164/96 mm[Hg] (2) 156/90 mm[Hg] 06/14/2005 Weight Blood Pressure 107.05 kg 150/86 mm[Hg] 02/24/2005 Weight Blood Pressure 107.95 kg 146/94 mm[Hg] 10/06/2004 Height Weight Blood Pressure 161.29 cm 109.32 kg 140/88 mm[Hg]
--- NOTE | 2021-11-25 13:55 | ED.GENADUL_ITS ---
Discharge Plan Disposition Patient Disposition: [facility] INPATIENT Condition: Serious Discharge Details Clinical Impression: Syncope Primary Care Provider: Judith Saez ED Provider: Hill Chavez Home Meds and New Rx's Prescriptions: No Action losartan 25 mg Tablet 25 mg PO DAILY 0RF metoprolol tartrate 50 mg Tablet 50 mg PO BID 0RF aspirin 81 mg Tablet 81 mg PO 0RF lorazepam 0.5 mg Tablet 0.5 mg PO PRN PRN0RF loratadine 10 mg Tablet 10 mg PO DAILY PRN0RF Medical Decision Making 1400 --76-year-old female smoker with history of hypertension, here after syncopal episode that occurred while she was walking around grocery store. She has no associated chest pain or shortness of breath. Patient is mildly hypertensive. Patient is saturating well in no respiratory distress. EKG was reviewed and interpreted by me: T wave inversions noted in lead II, III, aVF, V4 and V5, subtle ST depression noted lead aVF, V4 to V6. Plan to check tropnin and trend. Continuous traffic monitor specialist was reviewed by me and reveals normal sinus rhythm. We will obtain CT of the head given recent headache and possible head trauma with fall. 1453 -- CT head interpreted by radiology: IMPRESSION: Bilateral periventricular white matter hypodensity chronic small vessel disease.? No obvious acute territorial infarction.? No evidence of intracranial hemorrhage. If clinically indicated follow-up MRI can be performed. --Plan for hospitalization for continued telemetry. I spoke with Dr. Umanzor, on- call hospitalist, discussed ED presentation course, she will admit the patient. HPI General Mode of arrival: EMS . Date/Time Provider Initiated Documentation: 11/25/21 11:31 . Limitations to Documentation: no limitations . Information obtained by: patient . HPI Narrative: 76-year-old female presents with chief complaint of syncope. Patient notes she was at a grocery store and suddenly felt like she was in a pass out and lost consciousness and fell to the floor. Syncope was severe with no modifiers. She does not recall fall. She thinks she landed on her buttocks. Patient is not sure if she hit her head. She does have mild headache. Patient notes mild headache over the past 2 weeks. No associated numbness or tingling. No focal weakness. Patient denies associated chest pain or shortness of breath. She denies leg swelling or calf pain. Patient notes she is feeling better now. Related Data Home Medications Medication Instructions Recorded Confirmed aspirin 81 mg tablet 81 mg PO 11/25/21 loratadine 10 mg tablet 10 mg PO DAILY PRN 11/25/21 11/25/21 lorazepam 0.5 mg tablet 0.5 mg PO PRN PRN 11/25/21 11/25/21 losartan 25 mg tablet 25 mg PO DAILY 11/25/21 11/25/21 metoprolol tartrate 50 mg tablet 50 mg PO BID 11/25/21 11/25/21 Allergies Allergy/AdvReac Type Severity Reaction Status Date / Time Iodine and Iodide Containing Allergy Severe Anaphylaxis Unverified 11/25/21 11:47 Produc iodine Allergy Unverified 11/25/21 11:47 codeine AdvReac Mild Nausea Unverified 11/25/21 11:59 oxycodone [From OxyContin] AdvReac Mild Nausea Unverified 11/25/21 11:59 General Stated Complaint: Dizzy/Sync MISTI: 2 Review of Systems All systems reviewed & are unremarkable except as noted in HPI and below Constitutional Constitutional: Denies fever(s) Cardiovascular Cardiovascular: Denies chest pain and Denies dyspnea Respiratory Respiratory: Denies cough and Denies dyspnea Gastrointestinal Gastrointestinal: Denies abdominal pain PFSH All Active Problems (Updated 11/25/21 @ 16:11 by Hill Chavez MD) Syncope (Chronic) Social History Smoking/Tobacco Use Status: Current every day Tobacco Type: cigarettes Smoking risk assessment performed?: Yes Substance use type: does not use Do you feel safe at home: Yes Do you feel safe in your relationship?: Yes Exam Const General: cooperative and no acute distress [facility] Head: normocephalic and atraumatic Mouth: moist mucous membranes Eyes Conjunctivae: normal conjunctivae Sclera: normal sclerae EOM: nystagmus Neck Neck: trachea midline and supple Resp Auscultation: clear to auscultation bilaterally, no rales, no rhonchi and no wheezes Cardio Rate: regular rate and not tachycardic Rhythm: regular rhythm Heart Sounds: no murmurs GI Palpation: soft, not firm, no guarding, no masses, not rigid and nontender Skin General skin exam: no rashes or lesions noted Neuro General: patient alert, patient awake, patient oriented x3 and tone normal Cranial Nerves: CN's II-XI intact bilaterally and nystagmus horizontal fast component to the left Cognition: normal cognition Speech: speech normal Motor: strength 5/5 throughout Sensory Exam: no sensory deficits noted Coordination: [id number] test normal and [id number] test normal Other: Rapid alternating movements intact Extrem General: no calf tenderness bilaterally and no edema Psych Appearance: grossly normal Mental Status: mental status grossly normal Speech and Movement: speech and movement normal Course Vital Signs Vital signs: Vital Signs Temperature 36.7 C 11/25/21 11:23 Pulse 70 11/25/21 11:23 Respiratory Rate 17 11/25/21 11:23 Blood Pressure 170/92 H 11/25/21 11:23 Pulse Oximetry 98 11/25/21 11:23 Temperature 36.7 C 11/25/21 11:23 Temperature Source Skin 11/25/21 11:23 Pulse 59 L 11/25/21 13:05 Respiratory Rate 15 11/25/21 13:05 Respiratory Effort 11/25/21 12:06 Respiratory Depth Normal 11/25/21 11:33 Respiratory Pattern Normal 11/25/21 11:33 Blood Pressure 161/61 H 11/25/21 13:05 Pulse Oximetry 98 11/25/21 13:05 Oxygen Delivery Method Room Air 11/25/21 11:23 Oxygen Flow Rate 0 11/25/21 11:23 Pain Level 1 11/25/21 11:23 Comment 11/25/21 11:23 Lab/Test Results Lab/Test Results: Laboratory Tests Range/Units 11/25/21 11/25/21 11:40 11:40 WBC (4.4-10.8) 10^3/uL 6.40 RBC (3.93-5.22) 10^6/uL 5.09 Hgb (11.2-15.7) g/dL 15.6 Hct (36.0-46.0) % 47.4 H MCV (80-95) fL 93.1 MCH (27.0-33.0) pg 30.6 MCHC (32.0-36.0) % 32.9 RDW (11.7-14.6) % 13.7 Plt Count (130-400) 10^3/uL 194 MPV (8.0-11.0) fL 10.6 Immature Gran % 0.3 Neutrophils % 72.3 Lymphocytes % 18.1 Monocytes % 6.1 Eosinophils % 1.9 Basophils % 1.3 Nucleated RBC % % 0 Absolute Neutrophils (1.2-6.7) 10^3/uL 4.63 Absolute Lymphocytes (1.2-3.4) 10^3/uL 1.16 L Absolute Monocytes (0.1-0.8) 10^3/uL 0.39 Absolute Eosinophils (0.0-0.7) 10^3/uL 0.12 Absolute Basophils (0.0-0.2) 10^3/uL 0.08 Sodium (136-145) mmol/L 141 Potassium (3.5-5.1) mmol/L 3.8 Chloride (98-107) mmol/L 105 Carbon Dioxide (21.0-32.0) mmol/L 27.9 Anion Gap (3-11) mmol/L 8.1 BUN (7-18) mg/dL 10 Creatinine (0.55-1.02) mg/dL 0.8 Estimated GFR/1.73 m2 (mL/min/1.73m2) >= 60.00 Glucose (74-106) mg/dL 127 H Calcium (8.5-10.1) mg/dL 8.6 Magnesium (1.8-2.4) mg/dL 1.8 Total Bilirubin (0.2-1.0) mg/dL 0.7 AST (15-37) U/L 10 L ALT (14-59) U/L 13 L Alkaline Phosphatase (46-116) U/L 98 Troponin I (<or=60) ng/L < 50 Total Protein (6.4-8.2) g/dL 6.7 Albumin (3.4-5.0) g/dL 3.6 TSH (0.36-3.74) uIU/mL 1.74
[2021-11-25 14:43] LABS: Troponin I < 50 ng/L (<or=60)
--- NOTE | 2021-11-25 15:02 | W.PM.HP.N ---
Date of service: 11/25/21 Time of Service: 15:02 Assessment and Plan Assessment and plan (1) Syncope: Status: Chronic Assessment and plan: admitted to telemetry on observation cycle troponins echo pending for am will plan discharge to home with no services on cardiac event recorder. discussed with DR Umanzor History of Present Illness History of Present Illness Chief Complaint: syncope Narrative: syncopal episode while shopping, collapsed to buttock, no head injury. work up in ED unremarkable, no dysrhythmias on telemetry. she is agreeable to observation admission for syncope she reports she was in her usual state of health. she denies any chest pain or shortness of breath. she denies any prodrome or warning this would happen. she had not changed position quickly or been standing for long time. She has had no similar history. Review of Systems All systems reviewed & are unremarkable except as noted in HPI and below Constitutional Constitutional: Denies fatigue, Denies fever(s), Denies frequent falls, Denies headache(s) and Denies poor appetite Eyes Eyes: Denies blurry vision and Denies change in vision ENT Ears, Nose, Mouth, and Throat: Denies headache(s) Cardiovascular Cardiovascular: Denies chest pain and Denies dyspnea Respiratory Respiratory: Denies cough and Denies dyspnea Gastrointestinal Gastrointestinal: Denies abdominal pain and Denies nausea Musculoskeletal Musculoskeletal: Denies back pain, Denies arthralgias and Denies joint swelling Neurologic Neurologic: Denies frequent falls and Denies headache(s) Endocrine Endocrine: Denies fatigue PFSH All Active Problems (Updated 11/25/21 @ 16:11 by Hill Chavez MD) Syncope (Chronic) Social History Smoking/Tobacco Use Status: Current every day Tobacco Type: cigarettes Smoking risk assessment performed?: Yes Substance use type: does not use Do you feel safe at home: Yes Do you feel safe in your relationship?: Yes Meds Allergies and Home Medications Allergies Allergy/AdvReac Type Severity Reaction Status Date / Time Iodine and Iodide Containing Allergy Severe Anaphylaxis Unverified 11/25/21 11:47 Produc iodine Allergy Unverified 11/25/21 11:47 codeine AdvReac Mild Nausea Unverified 11/25/21 11:59 oxycodone [From OxyContin] AdvReac Mild Nausea Unverified 11/25/21 11:59 Home Medications Medication Instructions Recorded Confirmed Type aspirin 81 mg tablet 81 mg PO BID 11/25/21 11/26/21 History loratadine 10 mg tablet 10 mg PO DAILY PRN 11/25/21 11/25/21 History lorazepam 0.5 mg tablet 0.5 mg PO PRN PRN 11/25/21 11/25/21 History losartan 25 mg tablet 25 mg PO DAILY 11/25/21 11/25/21 History metoprolol tartrate 50 mg tablet 50 mg PO BID 11/25/21 11/25/21 History omeprazole 20 mg capsule,delayed 20 mg PO DAILY 11/26/21 11/26/21 History release Exam Const General: cooperative, healthy appearing, comfortable and no acute distress Nutritional Appearance: overweight Orientation: alert, awake and oriented x3 HENMT Head: normal to inspection, normocephalic and atraumatic Mouth: oral mucosae normal Resp Effort & Inspection: normal respiratory effort Auscultation: clear to auscultation bilaterally Cardio Rate: regular rate Rhythm: regular rhythm GI Inspection: normal to inspection Palpation: soft Auscultation: normal bowel sounds Skin General skin exam: no rashes or lesions noted Neuro General: patient alert, patient awake and patient oriented x3 Cognition: normal cognition Speech: speech normal Gait: normal gait Extrem General: normal to inspection, full ROM and no pedal edema Psych Appearance: grossly normal Mental Status: mental status grossly normal Speech and Movement: speech and movement normal Results Labs Result diagrams: 11/25/21 11:40 11/25/21 11:40 Labs: Laboratory Results - last 24 hr 11/25/21 11/25/21 11/25/21 11:40 11:40 14:22 WBC 6.40 RBC 5.09 Hgb 15.6 Hct 47.4 H MCV 93.1 MCH 30.6 MCHC 32.9 RDW 13.7 Plt Count 194 MPV 10.6 Immature Gran % 0.3 Neutrophils % 72.3 Lymphocytes % 18.1 Monocytes % 6.1 Eosinophils % 1.9 Basophils % 1.3 Nucleated RBC % 0 Absolute Neutrophils 4.63 Absolute Lymphocytes 1.16 L Absolute Monocytes 0.39 Absolute Eosinophils 0.12 Absolute Basophils 0.08 Sodium 141 Potassium 3.8 Chloride 105 Carbon Dioxide 27.9 Anion Gap 8.1 BUN 10 Creatinine 0.8 Estimated GFR/1.73 m2 >= 60.00 Glucose 127 H Calcium 8.6 Magnesium 1.8 Total Bilirubin 0.7 AST 10 L ALT 13 L Alkaline Phosphatase 98 Troponin I < 50 < 50 Total Protein 6.7 Albumin 3.6 TSH 1.74 Last Vital Signs Temp 36.7 C 11/25/21 11:23 Pulse 59 L 11/25/21 13:05 Resp 15 11/25/21 13:05 BP 161/61 H 11/25/21 13:05 Pulse Ox 98 11/25/21 13:05
[2021-11-25 16:02] LABS: Source Nasal/Nares
[2021-11-25 16:44] LABS: COVID-19 PCR Negative (Negative)
[2021-11-25] MEDS: Metoprolol 50 MG TAB PO (20:26)
[2021-11-25 21:18] LABS: Troponin I < 50 ng/L (<or=60)
[2021-11-25] MEDS: Acetaminophen 325 MG TAB 650 MG PO (22:25)
--- NOTE | 2021-11-26 | DI.US_ITS ---
APPROVED REPORT EXAM: Comprehensive 2D, Doppler, and color-flow Echocardiogram Patient Location: In-Patient Room/Bed: [facility] Director Of Physical Education: Joi Jones RDCS (AE) Indications: Syncope Other Information Study Quality: Adequate Conclusion Normal left ventricular wall thickness and chamber size. Estimated ejection fraction is 55 to 60%. Wall motion is normal Normal right ventricular size and systolic function Both atria are mildly dilated Aortic valve is trileaflet, mildly sclerotic, with trace regurgitation. There is no aortic stenosis Mild mitral annular calcification. Mild mitral regurgitation Normal tricuspid valve with moderate regurgitation. Estimated right ventricular systolic pressure is 45 mmHg Mildly dilated ascending aorta, 3.57 cm Wall motion Left Ventricle The left ventricle is normal size. The left ventricular systolic function is normal. The left ventric ular ejection fraction is within the normal range. There is normal left ventricular wall thickness. T here is normal LV segmental wall motion. There is no ventricular septal defect visualized. LVEF is 58 %. Right Ventricle The right ventricle is normal size. The right ventricular systolic function is normal. The RVSP is 45 .5mmHg. Atria Left atrium is mildly dilated. Right atrium is mildly dilated. The interatrial septum is intact with no evidence for an atrial septal defect. Aortic Valve The Aortic valve is mildly sclerotic Aortic valve is trileaflet. There is no aortic valvular stenosis . Trace aortic regurgitation. Mitral Valve Mild mitral annular calcification. No evidence of mitral valve stenosis. Mild mitral regurgitation. Tricuspid Valve The tricuspid valve is normal in structure. There is no tricuspid valve stenosis. Moderate tricuspid regurgitation. Pulmonic Valve The pulmonary valve is normal in structure. There is no pulmonic valvular stenosis. Trace pulmonic re gurgitation. Great Vessels The aortic root is normal in size. The ascending aorta is mildly dilated. Aortic arch is normal in ca liber. IVC is normal in size and collapses >50% with inspiration. Pericardium There is no pericardial effusion. 2D Dimensions IVSD d PLAX 1.19 cm F: 0.6-1.0 LV Vol A2C d MOD 78.0 mL LVPW d PLAX 1.15 cm F: 0.6 - 1.0 LV Vol A4C d MOD 77.1 mL LVID d PLAX 4.41 cm F: 3.8 - 5.2 LA vol/ BSA A2C s A-L 30.2 mL/m2 LVDs 2.95 cm F: 2.2 - 3.5 LA vol/ BSA A4C s A-L 32.3 mL/m2 Ao Root d 3.02 cm F: 2.7 - 3.3 LA Vol/ BSA Biplane s A-L 31.5 mL/m2 RA Area A4C 18.11 cm2 LA Area A4C s MOD 22.07 cm2 RA Vol/ BSA A4C s A-L 24.0 mL/m2 LA Area A2C s MOD 21.22 cm2 Ao Asc Diam d 3.57 cm F: 2.3 - 3.1 LV EF A4C MOD 57.5 % LV EF Teichholz 61.6 % LV EF A2C MOD 58.9 % LVEF (Arroyo's) 59.33 % F: 54 - 74 LV EF Biplane MOD 59.3 % LV Volume 58.69 mL F: 46 - 106 SV 47.28 mL LV Volume Index 27.81 mL/m2 F: 29 - 61 SV Index 22.37 mL/m2 LV Vol Biplane MOD 79.7 mL FS 32.85 % M-Mode TAPSE 2.45 cm (M/F) >1.7 LV Diastology MV E' medial 0.067 (>0.07 m/s) E/A Ratio 1.1 LV E/e MED 8.75 (<14) MV E Vmax 0.59 (0.4-1.3 m/s) MV E' lateral 0.078 (>0.1 m/s) MV A Vmax 0.55 (0.4-1.3 m/s) LV E/e LAT 7.55 (<14) MV E/A Ratio 1.02 MV E/E' medial 8.80 MV E/E' lateral 7.59 Aortic Valve LVOT Area 2.57 cm2 AoV Area Vmax 2.32 cm2 LVOT Vmax 1.20 m/s AoV Area/ BSA (Vmax) 1.10 cm2/m2 LVOT Mean Fuad. 0.85 m/s LAUREANO Mean Fuad. 2.47 cm2 LVOT Peak Grad 5.7 mmHg LAUREANO Mean Fuad. Index 1.17 cm2/m2 LVOT Mean Grad 3.2 mmHg LVOT VTI 0.304 m LVOT Diam s 1.80 cm AoV Vmax 1.33 m/s Velocity Ratio 0.90 AoV Mean Fuad. 0.89 m/s AoV Peak Grad 7.1 mmHg LVOT SV 78.21 mL AoV Mean Grad 3.6 mmHg AoV VTI 0.306 m AoV Area VTI 2.55 cm2 AoV Area/ BSA (VTI) 1.21 cm/m2 Mitral Valve MV DT 305 (160-240 msec) MV PHT 88 msec MV Area PHT 2.49 cm2 MV VTI 0.297 m MV Area VTI 2.63 (4.0-6.0 cm2) Pulmonary Valve PV Vmax 0.95 (0.5-1.5 m/s) RVOT Peak Gr. 1.41 mmHg PV Peak Grad 3.6 mmHg RVOT Mean Gr. 0.85 mmHg PV Mean Grad 2.1 mmHg RVOT VTI 0.138 m PV VTI 0.248 m RVOT Vmax 0.59 m/s Tricuspid Valve TR Peak Grad 42.4 mmHg TR Vmax 3.26 m/s RA Pressure 3.00 mmHg RVSP (TR) 45.5 mmHg
[2021-11-26 03:25] VITALS: BP 147/84; PULSE 67; RESP 18; TEMP 36.1; O2SAT 99
[2021-11-26 07:12] VITALS: PULSE 56
[2021-11-26 07:24] VITALS: BP 136/83; PULSE 51; RESP 15; TEMP 36.5; O2SAT 97
[2021-11-26] MEDS: Metoprolol 50 MG TAB PO (07:40)
[2021-11-26] MEDS: Aspirin 81 MG CHEW CH (07:40)
[2021-11-26] MEDS: Losartan 25 MG TAB PO (07:40)
[2021-11-26] MEDS: Normal Saline Flush 10 ML SYR IVP (07:50)
[2021-11-26] MEDS: Acetaminophen 325 MG TAB 650 MG PO (07:50)
[2021-11-26] MEDS: Omeprazole 20 MG CAPCR PO (08:08)
--- NOTE | 2021-11-26 11:13 | PDOC.CMIN ---
- If Service Date Differs Date of service: 11/26/21 Time of Service: 11:13 Care Management Initial Assess REASON FOR HOSPITALIZATION:: Syncope PAST MEDICAL HISTORY/PAST SURGICAL HISTORY:: All Active Problems (Updated 11/25/21 @ 16:11 by Hill Chavez MD). Syncope (Chronic) PREVIOUS FUNCTIONAL STATUS/SOCIAL/FAMILY SUPPORTS:: Yuval lives in [place], [place] with her Cristofer. She is retired, drives and is independent at baseline. Yuval enjoys baking donuts and desserts for her family. CURRENT FUNCTIONAL STATUS:: Yuval was lying in bed when CM met with her. She reported that she's felt good throughout her admission. She has a routine followup appointment with her PCP tomorrow morning. ADVANCE DIRECTIVES:: None, CM provided pt with forms. Has patient been provided with info about the portal/API?: Yes Did the patient sign up for the portal?: No CODE STATUS:: Full Code INSURANCE COVERAGE / FINANCIAL ISSUES:: [employer]. BS. Medicare CURRENT HOME/COMMUNITY SERVICES/EQUIPMENT:: None PRIMARY CARE PHYSICIAN:: Judith Saez [facility] POTENTIAL DISCHARGE NEEDS:: Cardiac Event Recorded, Follow up appointments PATIENT/FAMILY EDUCATION NEEDS:: Review discharge instructions, limitations, medications and plan to follow up with community providers. ask me three. TRANSPORTATION:: Via private vehicle with family. PLAN:: Yuval requires hospitalization for continued telemetry. Anticipate, Yuval will discharge home with a Nuclear Medicine Technician when medically cleared by Luke. She will follow up with community providers and discharge plan of care as prescribed.
--- NOTE | 2021-11-26 11:29 | CHAPLAIN ---
Yuval was resting in bed when I visited. I introduced myself and explained my role. She was not interested in a longer conversation. She said she's been able to be in touch with family members.
--- NOTE | 2021-11-26 13:17 | DSE_ITS ---
Date of service: 11/26/21 Time of Service: 18:30 DS: Diagnosis Discharge Diagnosis (1) Syncope: Status: Chronic Discharge Plan Disposition Patient Disposition: HOME Condition: Stable Discharge Details Reason For Visit: Syncope Admit Date/Time: 11/25/21 14:58 Admit Provider: Jennyfer Umanzor Attending Provider: Jennyfer Umanzor Primary Care Provider: Judith Saez Hospital Course Hospital Course: This is a 76 year old female with history of hypertension, gerd, anxiety who presented to the ED for evaluation after an episode of syncope while shopping with her . SHe had no prodrome or warning. She did not strike her head or sustain any other injury. Her LOC was reported as brief. no incontinence or signs of seizure. Her work up in the ED was unremarkable, found in NSR, she was referred to observation and remained asymptomatic, on telemetry in NSR. her serial troponins negative. Her echo unremarkable with EF 58%. She is being discharged on a cardiac event recorder and will be referred to her concrete analyst for further outpatient evaluation and recommendations. discussed with Dr Umanzor. Home Meds and New Rx's Prescriptions: Continued losartan 25 mg Tablet 25 mg PO DAILY 0RF metoprolol tartrate 50 mg Tablet 50 mg PO BID 0RF aspirin 81 mg Tablet 81 mg PO BID 0RF lorazepam 0.5 mg Tablet 0.5 mg PO PRN PRN0RF loratadine 10 mg Tablet 10 mg PO DAILY PRN0RF omeprazole 20 mg Capsule,Delayed Release(Dr/Ec) 20 mg PO DAILY 0RF Discharge Instructions Instructions: Syncope (DC) Additional Instructions: wear monitoring manager as directed. Stand Alone Forms: Nursing Discharge Form Referrals: CARDIOLOGY,[facility] [place] [OTHER] - 12/25/21 1:20 pm (Dr. acosta) Activity:: Activity as Tolerated Equipment/Supplies:: No Equipment Needed Diet:: As Tolerated Discharge Orders Discharge Orders: Discharge Order (Routine); Ordered 11/26/21 Ordered By: Yarely Gamboa Other Ambulatory Orders: Cardiac Event Recorder (Routine) Timeframe: [id number] Facility: [facility] - Location: Respiratory Therapy Ordered By: Yarely Gamboa Discharge Data Discharge Date/Time-TO BE ENTERED AT DEPARTURE: 11/26/21 14:16 DS: Summary Time Spent with Patient providing and/or coordinating discharge services: Greater than 30 minutes Status at Discharge Functional status at discharge: independent ambulation Overall status at discharge: patient is back to baseline Mental Status: mental status grossly normal Speech and Movement: speech and movement normal Mood: congruent mood Affect: normal affect Exam Psych Mental Status: mental status grossly normal Speech and Movement: speech and movement normal Mood: congruent mood Affect: normal affect DS: Data Vitals/I&O Vitals and I&O: Vital Signs Temperature 36.5 C 11/26/21 07:24 Temperature Source Tympanic 11/26/21 07:24 Pulse 51 L 11/26/21 07:24 Pulse Rhythm Regular 11/26/21 10:05 Respiratory Rate 15 11/26/21 07:24 Respiratory Effort Non-Labored 11/26/21 10:05 Respiratory Depth Normal 11/26/21 10:05 Respiratory Pattern Normal 11/26/21 10:05 Blood Pressure 136/83 11/26/21 07:24 Pulse Oximetry 97 11/26/21 07:24 Oxygen Delivery Method Room Air 11/26/21 07:24 Oxygen Flow Rate 0 11/26/21 07:24 Pain Level 0 11/26/21 07:24 Comment 11/25/21 11:23 Intake & Output 11/25/21 11/26/21 11/26/21 23:59 11:59 23:59 Intake Total 120 / 120 540 / 780 240 / 780 Balance 120 / 120 540 / 780 240 / 780 Weight 109 kg Intake: Oral 120 / 120 540 / 780 240 / 780 Other: Urine Appearance Clear Clear Comment unmeasurable. No hat in toilet. Voided in toilet Voiding Methods Toilet Data Completed and Pending Labs on day of discharge: Labs from last 24 hours 11/25/21 11/25/21 11/25/21 20:29 15:49 14:22 Troponin I < 50 < 50 COVID-19 Source Nasal/Nares SARS-CoV-2 (PCR) Negative PFSH All Active Problems (Updated 11/25/21 @ 16:11 by Hill Chavez MD) Syncope (Chronic) Social History Smoking/Tobacco Use Status: Current every day Tobacco Type: cigarettes Smoking risk assessment performed?: Yes Substance use type: does not use Do you feel safe at home: Yes Do you feel safe in your relationship?: Yes
--- NOTE | 2021-11-26 13:24 | PDOC.CMDIS ---
- If Service Date Differs Date of service: 11/26/21 Time of Service: 13:25 LACE Index Scoring Tool - Questions: Length of Stay (in days): 1 Acuity (Admit via E.D.?): Yes E.D. Visits: 1 - Answers: Total Score: 5 Risk of Readmission: Low Risk Care Management Discharge Reason for Hospitalization: Syncope Discharge Plan: Discharge home with cardiac event recorder via private vehicle with family. Follow up with community providers and discharge plan of care as prescribed. Patient/Family Education Needs: Review discharge instructions, limitations, medications and plan to follow up with community providers. ask me three.
[2021-11-26 13:50] VITALS: PULSE 50
--- NOTE | 2021-12-29 08:17 | W.CARDEVENT ---
Date of service: 12/29/21 Time of Service: 08:17 Cardiac Event Recorder Referring Provider:: Jennyfer Umanzor Indications:: Syncope Cardiac Event Note: This is a 30-day cardiac event monitor, reportedly ordered for syncope Predominant rhythm was sinus average heart rate overall was 58 bpm.. Minimum was 48, maximum 139 There were rare ventricular ectopic beats. There was several 3-4 beat runs of nonsustained ventricular tachycardia. Some episodes of labeled ventricular tachycardia were in fact SVT There were rare atrial premature beats. There were several self-limited atrial runs, none of which were more than 10 beats in duration There was no atrial fibrillation. Episodes labeled atrial fibrillation was sinus bradycardia with baseline artifact Multiple patient symptoms were reported. These did not reliably correspond to any dysrhythmia There were no pauses greater than 3 seconds, no high-grade AV block
== END 2021-11-26 14:16 | disposition home or self-care (01) ==
LOC: ER 16:11 → MS 16:57
PROVIDERS: Nurse Practitioner Acute Care; Student in an Organized Health Care Education/Training Program; Admitting Provider Internal Medicine; Emergency Provider Student in an Organized Health Care Education/Training Program; PCP Nurse Practitioner Family; Visit Provider Internal Medicine
DX: R55 Syncope and collapse (principal); F17.210 Nicotine dependence, cigarettes, uncomplicated; I10 Essential (primary) hypertension; K21.9 Gastro-esophageal reflux disease without esophagitis; F41.9 Anxiety disorder, unspecified; W18.39XA Other fall on same level, initial encounter; Z79.82 Long term (current) use of aspirin; Z79.899 Other long term (current) drug therapy
CPT/HCPCS: 36415; 80053; 87635; 93005; 93270; 99285; 70450; 83735; 84443; 84484; 85025; 93010; 93306; 99217; 99219; G0378

== ENCOUNTER 2021-11-26 19:47 | Observation (INO) | payer MEDICARE, SELFPAY ==
[2021-11-26] VITALS (35 sets, daily range): BP systolic 136–216; BP diastolic 63–130; PULSE 52–81; RESP 10–25; TEMP 35.8–36.6; O2SAT 96–100
--- NOTE | 2021-11-26 19:45 | RT.EKG_ITS ---
APPROVED REPORT Exam: Resting ECG Reason for Exam: chest pain Patient Location: E HR:65 bpm ECG Measurements Heart Rate 65 AXIS IA 116 P 65 QRSd 102 QRS -34 QT 428 T -77 QTc 444 Conclusion Sinus rhythm. Left axis deviation. Abnormal T, , diffuse leads, not signifcantly changed from previous
--- NOTE | 2021-11-26 20:16 | W.ED.GENAD ---
Discharge Plan Disposition Patient Disposition: [facility] INPATIENT Condition: Improving Discharge Details Chief Complaint: Dizzy/Sync Clinical Impression: Syncope Admit Date/Time: 11/26/21 21:53 Admit Provider: Anson Lombardi Attending Provider: Anson Lombardi Primary Care Provider: Judith Saez ED Provider: Gilbert Oneill Medical Decision Making 76-year-old female presents from home after being discharged today. Yesterday she had a syncopal event while shopping. Was admitted, had a negative CAT scan of her head, underwent unremarkable echocardiogram, and was discharged stable and improved. Tonight she sat down by poker, felt diaphoretic, lightheaded, had graying of her vision and tightness in her chest. She was nauseated but did not have any emesis. She states her upper extremity shook for a few seconds, but she did not have true loss of consciousness. She was brought to the ER by her improved. She relates to me that she has had episodes similar to this for years. She was referred within the past couple of years to [facility] for a cardiology consultation. She has been taking metoprolol and losartan as prescribed Patient is well-appearing, her neurologic exam is unremarkable. Repeat screening labs, EKG, urinalysis obtained as well as orthostatic vital signs. Patient is not orthostatic. She states she has been followed previously by Dr. Carver, her primary care physician. She will note a question of previous TIAs as well as a question of her having intermittent atrial fibrillation. Patient's work-up is reassuring. I do feel she ought to be readmitted for ongoing telemetry and consideration of MRI MRA of the [place] and carotid arteries. Case discussed with Dr. Lombardi Lab Data Lab results reviewed: Yes I reviewed the patient's lab results. Labs: Laboratory Results - last 24 hr 11/26/21 11/26/21 11/26/21 20:15 20:28 20:28 WBC 5.65 RBC 5.03 Hgb 15.4 Hct 47.1 H MCV 93.6 MCH 30.6 MCHC 32.7 RDW 13.4 Plt Count 198 MPV 11.2 H Immature Gran % 0.5 Neutrophils % 62.9 Lymphocytes % 24.4 Monocytes % 7.8 Eosinophils % 3.5 Basophils % 0.9 Nucleated RBC % 0 Absolute Neutrophils 3.55 Absolute Lymphocytes 1.38 Absolute Monocytes 0.44 Absolute Eosinophils 0.20 Absolute Basophils 0.05 Sodium 140 Potassium 3.8 Chloride 104 Carbon Dioxide 28.7 Anion Gap 7.3 BUN 14 Creatinine 0.9 Estimated GFR/1.73 m2 >= 60.00 Glucose 143 H Calcium 8.8 Magnesium 2.1 Total Bilirubin 0.5 AST 17 ALT 16 Alkaline Phosphatase 93 Troponin I < 50 Total Protein 7.0 Albumin 3.7 Urine Color Straw Urine Clarity Clear Urine pH 6.5 Ur Specific [place] 1.010 Urine Protein Negative Urine Ketones Negative Urine Blood Trace-intact H Urine Nitrite Negative Urine Bilirubin Negative Urine Urobilinogen 0.2 Ur Leukocyte Esterase Negative Urine RBC Negative Urine WBC Negative Ur Epithelial Cells Rare Urine Crystals Negative Urine Bacteria Negative Urine Casts Negative Urine Mucus Negative Urine Other Negative Ur Culture Indicated? No Urine Glucose Negative HPI General Mode of arrival: ambulatory. Date/Time Provider Initiated Documentation: 11/26/21 19:56. Limitations to Documentation: no limitations. Information obtained by: patient. History of Present Illness 76 year old F presents to the emergency department with the chief complaint of Recurrent syncope, described as moderate and similar to prior episodes, Quality is described as dull and constant, and is localized to the head. Patient reports no radiation. Patient started experiencing this hour(s) and it has been now resolved. improves with No relieving factors improve symptom(s), No exacerbating factors reported . Patient notes diaphoresis, loss of appetite, nausea/vomiting, syncope and weakness; denies chest pain and seizure. Patient did receive the following treatments prior to arrival, none Related Data Home Medications Medication Instructions Recorded Confirmed aspirin 81 mg tablet 81 mg PO BID 11/25/21 11/26/21 loratadine 10 mg tablet 10 mg PO DAILY PRN 11/25/21 11/26/21 lorazepam 0.5 mg tablet 0.5 mg PO PRN PRN 11/25/21 11/26/21 losartan 25 mg tablet 25 mg PO DAILY 11/25/21 11/26/21 metoprolol tartrate 50 mg tablet 50 mg PO BID 11/25/21 11/26/21 omeprazole 20 mg capsule,delayed 20 mg PO DAILY 11/26/21 11/26/21 release Allergies Allergy/AdvReac Type Severity Reaction Status Date / Time Iodine and Iodide Containing Allergy Severe Anaphylaxis Unverified 11/26/21 19:59 Produc iodine Allergy Unverified 11/26/21 19:59 codeine AdvReac Mild Nausea Unverified 11/26/21 19:59 oxycodone [From OxyContin] AdvReac Mild Nausea Unverified 11/26/21 19:59 General Stated Complaint: Dizzy/Sync MISTI: 2 Review of Systems Narrative: Has this with a tightness in her chest. She has not had any recent illness. Recent work-up with negative head CT, Covid test, chest x-ray. Otherwise well. 8 systems were reviewed and otherwise negative PFSH All Active Problems (Updated 11/26/21 @ 22:45 by Gilbert Oneill MD) Syncope (Chronic) Social History Smoking/Tobacco Use Status: Current every day Tobacco Type: cigarettes Smoking risk assessment performed?: Yes Alcohol Intake: current Alcohol Intake frequency: holidays/special occasions only Substance use type: does not use Do you feel safe at home: Yes Do you feel safe in your relationship?: Yes Exam Narrative Exam Narrative: GEN: awake, alert, oriented 3. Pleasant, well groomed, interactive. HEAD: Normocephalic, atraumatic ENT: Mucous membranes moist, oropharynx unremarkable, External ear exam unremarkable EYES: PERRL, EOMI NECK: Full ROM, no CARLA, no menigismus CHEST/RESP: Nontender, clear to auscultation bilateral, no wheeze/rhonchi/rales CARDIOVASCULAR: RRR, no murmur, rub aldair. 2+ Rad pulse bilateral. External nuclear monitoring technician present ABDOMEN: Soft, nontender, no mass. +Bowel sounds EXT: Full ROM, no edema, no rash Neuro: Grossly normal neurologic exam, conversant, interactive. Cranial nerves 2 through 12 intact, finger to-nose intact, with Romberg patient has some swaying of the trunk but no drift. Psych: Speech fluent, thoughts congruent, affect normal Course Vital Signs Vital signs: Vital Signs Temperature 36.6 C 11/26/21 19:52 Pulse 75 11/26/21 19:52 Respiratory Rate 20 11/26/21 19:52 Blood Pressure 176/87 H 11/26/21 19:52 Pulse Oximetry 100 11/26/21 19:52 Temperature 36.6 C 11/26/21 19:52 Temperature Source Temporal Artery Scan 11/26/21 19:52 Pulse 75 11/26/21 19:52 Respiratory Rate 20 11/26/21 19:52 Respiratory Effort 11/26/21 19:58 Blood Pressure 176/87 H 11/26/21 19:52 Blood Pressure Position Sitting 11/26/21 19:52 Pulse Oximetry 100 11/26/21 19:52 Oxygen Delivery Method Room Air 11/26/21 19:52 Oxygen Flow Rate 0 11/26/21 19:52 Pain Level 0 11/26/21 19:52
[2021-11-26 20:35] LABS: Abs Immature Grans 0.03 10^3/uL (0.0-0.06); Absolute Basophil Count 0.05 10^3/uL (0.0-0.2); Absolute Lymphocyte Count 1.38 10^3/uL (1.2-3.4); Absolute Monocyte Count 0.44 10^3/uL (0.1-0.8); Absolute Neutrophil Count 3.55 10^3/uL (1.2-6.7); Basophils % 0.9; Eosinophils % 3.5; HCT 47.1 % (36.0-46.0); HGB 15.4 g/dL (11.2-15.7); Immature Grans % 0.5; Lymphocytes % 24.4; MCH 30.6 pg (27.0-33.0); MCHC 32.7 % (32.0-36.0); MCV 93.6 fL (80-95); MPV 11.2 fL (8.0-11.0); Monocytes % 7.8; Neutrophils % 62.9; Nucleated RBC 0 %; Platelet Count 198 10^3/uL (130-400); RBC 5.03 10^6/uL (3.93-5.22); RDW 13.4 % (11.7-14.6); RDW-SD 46.5 fL; WBC 5.65 10^3/uL (4.4-10.8)
[2021-11-26 20:39] LABS: Bilirubin Negative (Negative); Blood Trace-intact (Negative); Clarity Clear (Clear); Glucose Negative (Negative); Ketones Negative (Negative); Leukocyte Esterase Negative (Negative); Nitrite Negative (Negative); Urobilinogen 0.2 EU/dL (Up TO 0.2); pH 6.5 (5-8)
[2021-11-26 20:41] LABS: Bacteria Negative HPF (Negative); C & S Indicated? No; Casts Negative LPF (Negative); Crystals Negative HPF (Negative); Epithelial Cells Rare HPF (Negative); Mucus Negative (Negative); Other Cells Negative (Negative); RBC Negative HPF (0-2); WBC Negative HPF (0-5)
[2021-11-26] MEDS: LORazepam 2 MG/ML VIAL 0.5 MG IVP (20:42)
[2021-11-26] MEDS: Normal Saline 1,000 ML 150 ML IV (20:43)
[2021-11-26 20:49] LABS: ALT 16 U/L (14-59); AST 17 U/L (15-37); Albumin 3.7 g/dL (3.4-5.0); Alkaline Phosphatase 93 U/L (46-116); Anion Gap 7.3 mmol/L (3-11); BUN 14 mg/dL (7-18); Bilirubin, Total 0.5 mg/dL (0.2-1.0); CO2 28.7 mmol/L (21.0-32.0); CREATININE 0.9 mg/dL (0.55-1.02); Calcium 8.8 mg/dL (8.5-10.1); Chloride 104 mmol/L (98-107); Glucose 143 mg/dL (74-106); Magnesium 2.1 mg/dL (1.8-2.4); Potassium 3.8 mmol/L (3.5-5.1); Sodium 140 mmol/L (136-145); Troponin I < 50 ng/L (<or=60)
--- NOTE | 2021-11-26 21:50 | HPE_ITS ---
Date of service: 11/26/21 Time of Service: 21:50 Assessment and Plan Assessment and plan (1) Near syncope: Start date: 11/26/21 Status: Acute Assessment and plan: This is a 76-year-old lady who has had years of episodes similar to her presenting symptom today he has as severe. She was hospitalized with syncope while shopping with unrevealing evaluation and discharged only to return with a noticeable episode just prior to this observation. She has seen cardiology long-term and there was a question of having atrial fibrillation but also she sounds like she does have increased anxiety at times and multiple vagal episodes. She is on antihypertensive but was hypertensive in the ED. She will be observed with follow-up troponins in the morning with MRI of the brain and MRA of the brain to be ordered though the patient has allergies to iodine needs to be evaluated as to whether contrast can be used. Carotid Dopplers will also be performed. If patient stable she can be discharged with a Zio patch and continue work-up with neurology and cardiology long-term. She may need to maximize her conditioning and stop smoking as well as address her psychiatric issues with possible anxiety and increased vagal responses to situations. (2) Intermittent palpitations: Start date: 11/26/21 Status: Chronic Assessment and plan: Patient had palpitation during this episode he does have history of possible a trial fibrillation. Continue monitoring heart and adjusting medical therapy with patient already on metoprolol. (3) HTN (hypertension): Status: Chronic Assessment and plan: Patient does have chronic hypertension which is uncontrolled during the admission and permissive hypertension at the onset because of question of whether patient is having TIAs with her episodes. Monitor as we do further evaluation of her neurological status. Continue to adjust medications and watch for orthostasis. She was not orthostatic in the ED. History of Present Illness History of Present Illness Chief Complaint: Near syncopal spell Narrative: This is a 77-year-old female patient who presented to the ED after just being discharged from this hospital after a syncopal episode while shopping. Her evaluation was unrevealing and she returned home going to a neighbor poker libertarian in the basement at which time she felt her heart palpitating or moving in her chest without radiation and was nauseated with diaphoresis and tremors diffusely. She felt as if she was going to pass out but did not pass out entirely and was lightheaded and weak. She had no true chest pain. She had no focalizing seizure type activity with her tremors. In the ED for evaluation was unrevealing acutely and with her recent hospitalization did have unremarkable CT of the head and echocardiogram. In the past she was told that she did have an abnormal echocardiogram and possible atrial fibrillation with TIAs being a possibility. The ED physician thought that the patient should be observed with Zio patch applied at discharge and cardiac monitoring to be achieved during this observation as well as further imaging of her head to include MRI/MRA of the brain and carotid Dopplers of the neck. Patient is a smoker. She does see cardiology long-term and is on antihypertensives and antiarrhythmics with metoprolol and losartan. She is discouraged by her recurrent symptoms over the years which seem to be getting worse. She does admit to being very nervous and how she has had anxiety spells in the past which made her feel syncopal. In the ED the patient was not orthostatic. Review of Systems Narrative: 13 point review of systems otherwise unrevealing or stable. Patient has not gained weight. She is very active without restrictions. PFSH All Active Problems (Updated 11/27/21 @ 01:55 by Anson Lombardi) HTN (hypertension) (Chronic) Intermittent palpitations (Chronic) Near syncope (Acute) Syncope (Chronic) Social History Smoking/Tobacco Use Status: Current every day Tobacco Type: cigarettes Smoking risk assessment performed?: Yes Alcohol Intake: current Alcohol Intake frequency: holidays/special occasions only Substance use type: does not use Do you feel safe at home: Yes Do you feel safe in your relationship?: Yes Meds Allergies and Home Medications Allergies Allergy/AdvReac Type Severity Reaction Status Date / Time Iodine and Iodide Containing Allergy Severe Anaphylaxis Unverified 11/26/21 19:59 Produc iodine Allergy Unverified 11/26/21 19:59 codeine AdvReac Mild Nausea Unverified 11/26/21 19:59 oxycodone [From OxyContin] AdvReac Mild Nausea Unverified 11/26/21 19:59 Home Medications Medication Instructions Recorded Confirmed Type aspirin 81 mg tablet 81 mg PO BID 11/25/21 11/26/21 History loratadine 10 mg tablet 10 mg PO DAILY PRN 11/25/21 11/26/21 History lorazepam 0.5 mg tablet 0.5 mg PO PRN PRN 11/25/21 11/26/21 History losartan 25 mg tablet 25 mg PO DAILY 11/25/21 11/26/21 History metoprolol tartrate 50 mg tablet 50 mg PO BID 11/25/21 11/26/21 History omeprazole 20 mg capsule,delayed 20 mg PO DAILY 11/26/21 11/26/21 History release Exam Narrative Exam Narrative: General: Patient appears older than stated age, slightly anxious with pressured speech but normal affect and normal variation. She has good eye contact. She recognizes me as a physician from [facility]. She is alert and oriented x3. She is in no acute distress. HEENT: Normocephalic, eyes with pupils equal and reactive light symmetrically, extraocular movement intact and sclera anicteric. There is no nystagmus. Oropharynx with moist mucosa and tongue protrudes midline. Fair dentition. Neck: Supple without JVD. Back: Stooped posture with no CVA tenderness. Lungs: Clear to all station percussion. Heart: Regular rate and rhythm with no appreciable murmur gallop. Breast: Exam deferred. Abdomen: Obese contour, soft nontender to palpation with no palpable hepa tosplenomegaly. Genitalia/rectal: Exam deferred. Extremities: Without clubbing, cyanosis or grossly pitting edema. Patient moves all extremities well with no joint stiffness. Peripheral pulses intact. Skin: Actinic changes over sun exposed areas, normal color, warm and dry. Neuro: Cranial nerve II to XII grossly intact, no focalizing motor data. No tremor. No Babinski's. Psych: Slightly anxious with pressured speech. Normal mood. No abnormal thought processes. Remote and recent memory intact. Results Labs Result diagrams: 11/26/21 20:28 11/26/21 20:28 Labs: Laboratory Results - last 24 hr 11/26/21 11/26/21 11/26/21 20:15 20:28 20:28 WBC 5.65 RBC 5.03 Hgb 15.4 Hct 47.1 H MCV 93.6 MCH 30.6 MCHC 32.7 RDW 13.4 Plt Count 198 MPV 11.2 H Immature Gran % 0.5 Neutrophils % 62.9 Lymphocytes % 24.4 Monocytes % 7.8 Eosinophils % 3.5 Basophils % 0.9 Nucleated RBC % 0 Absolute Neutrophils 3.55 Absolute Lymphocytes 1.38 Absolute Monocytes 0.44 Absolute Eosinophils 0.20 Absolute Basophils 0.05 Sodium 140 Potassium 3.8 Chloride 104 Carbon Dioxide 28.7 Anion Gap 7.3 BUN 14 Creatinine 0.9 Estimated GFR/1.73 m2 >= 60.00 Glucose 143 H Calcium 8.8 Magnesium 2.1 Total Bilirubin 0.5 AST 17 ALT 16 Alkaline Phosphatase 93 Troponin I < 50 Total Protein 7.0 Albumin 3.7 Urine Color Straw Urine Clarity Clear Urine pH 6.5 Ur Specific [place] 1.010 Urine Protein Negative Urine Ketones Negative Urine Blood Trace-intact H Urine Nitrite Negative Urine Bilirubin Negative Urine Urobilinogen 0.2 Ur Leukocyte Esterase Negative Urine RBC Negative Urine WBC Negative Ur Epithelial Cells Rare Urine Crystals Negative Urine Bacteria Negative Urine Casts Negative Urine Mucus Negative Urine Other Negative Ur Culture Indicated? No Urine Glucose Negative Last Vital Signs Temp 36.6 C 11/26/21 19:52 Pulse 55 L 11/26/21 21:16 Resp 20 11/26/21 21:20 BP 151/130 H 11/26/21 21:16 Pulse Ox 97 11/26/21 21:20
[2021-11-27] LABS: Troponin I < 50 ng/L (<or=60)
[2021-11-27 00:09] LABS: Source Nasopharynx
[2021-11-27 03:25] VITALS: BP 145/78; PULSE 61; RESP 18; TEMP 36.4; O2SAT 94
[2021-11-27] MEDS: Normal Saline 1,000 ML 100 ML IV (05:18)
[2021-11-27 06:15] LABS: Abs Immature Grans 0.02 10^3/uL (0.0-0.06); Absolute Basophil Count 0.06 10^3/uL (0.0-0.2); Absolute Eosinophil Count 0.17 10^3/uL (0.0-0.7); Absolute Lymphocyte Count 1.49 10^3/uL (1.2-3.4); Absolute Monocyte Count 0.39 10^3/uL (0.1-0.8); Basophils % 1.3; Eosinophils % 3.7; HCT 42.6 % (36.0-46.0); HGB 13.9 g/dL (11.2-15.7); Immature Grans % 0.4; Lymphocytes % 32.2; MCH 30.3 pg (27.0-33.0); MCHC 32.6 % (32.0-36.0); MPV 11.4 fL (8.0-11.0); Monocytes % 8.4; Nucleated RBC 0 %; Platelet Count 167 10^3/uL (130-400); RBC 4.58 10^6/uL (3.93-5.22); RDW 13.6 % (11.7-14.6); RDW-SD 46.5 fL; WBC 4.63 10^3/uL (4.4-10.8)
[2021-11-27 06:35] LABS: ALT 12 U/L (14-59); AST 18 U/L (15-37); Albumin 3.1 g/dL (3.4-5.0); Alkaline Phosphatase 72 U/L (46-116); Anion Gap 6.7 mmol/L (3-11); BUN 10 mg/dL (7-18); Bilirubin, Total 0.5 mg/dL (0.2-1.0); CO2 26.3 mmol/L (21.0-32.0); CREATININE 0.6 mg/dL (0.55-1.02); Calcium 8.5 mg/dL (8.5-10.1); Chloride 108 mmol/L (98-107); Glucose 100 mg/dL (74-106); Potassium 3.8 mmol/L (3.5-5.1); Sodium 141 mmol/L (136-145); Total Protein 5.9 g/dL (6.4-8.2); Troponin I < 50 ng/L (<or=60)
[2021-11-27 07:00] VITALS: PULSE 55
[2021-11-27 07:16] LABS: FREE T4 1.01 ng/dL (0.76-1.46)
[2021-11-27] MEDS: Metoprolol 50 MG TAB PO (07:57)
[2021-11-27] MEDS: Losartan 25 MG TAB PO (07:57)
[2021-11-27] MEDS: Omeprazole 20 MG CAPCR PO (07:57)
[2021-11-27] MEDS: Aspirin 81 MG CHEW PO (07:57)
[2021-11-27 08:03] VITALS: BP 145/85; PULSE 57; RESP 16; TEMP 36.7; O2SAT 98
[2021-11-27 08:15] LABS: COVID-19 PCR Negative (Negative)
--- NOTE | 2021-11-27 08:58 | INITIAL_ITS ---
- If Service Date Differs Date of service: 11/27/21 Time of Service: 08:58 Care Management Initial Assess REASON FOR HOSPITALIZATION:: Syncope PAST MEDICAL HISTORY/PAST SURGICAL HISTORY:: All Active Problems (Updated 11/27/21 @ 01:55 by Anson Lombardi). HTN (hypertension) (Chronic). Intermittent palpitations (Chronic). Near syncope (Acute). Syncope (Chronic) PREVIOUS FUNCTIONAL STATUS/SOCIAL/FAMILY SUPPORTS:: Yuval lives in [place], [place] with her Cristofer. She is retired, drives and is independent at baseline. Yuval enjoys baking donuts and desserts for her family. CURRENT FUNCTIONAL STATUS:: Yuval was sitting up in her chair when CM met with her. Pt reported that she felt well enough to drive herself to [place] to play poker, a few hours after she was discharged yesterday. While playing poker she became light headed and called her to come pick her up. Soon after she came back to the [facility] ER. Yuval left part of her holter monitor at home, which her will bring here to determine if there are any home readings. Pt denies ETOH use following discharge, however she reports being a heavy smoker since she was a teen. Yuval declines nicotine replacement both yesterday and during this admission. Yuval refused to work with PT, CM discussed the benefit of catching an event on the recorder while working with slight exertion. Yuval became tristan and expressed her frustration and desire to go home. CM has a call into her PCP for a PA for a 14-day holter monitor. Per provider, Yuval may be able to disharge home with the 30 day monitor she is wearing with additional education. ADVANCE DIRECTIVES:: None, CM provided patient with forms. Has patient been provided with info about the portal/API?: Yes Did the patient sign up for the portal?: No CODE STATUS:: Full Code INSURANCE COVERAGE / FINANCIAL ISSUES:: AARP. BEV [employer]OR[employer]. Medicare CURRENT HOME/COMMUNITY SERVICES/EQUIPMENT:: None PRIMARY CARE PHYSICIAN:: Aayush Weston POTENTIAL DISCHARGE NEEDS:: Follow up appointments PATIENT/FAMILY EDUCATION NEEDS:: Review discharge instructions, limitations, medications and plan to follow up with community providers. ask me three. TRANSPORTATION:: Via private vehicle with family. PLAN:: Yuval requires hospitalization for close monitoring and further evaluation. Anticipate, Yuval will discharge home wearing her 30 day monitor, additional education has been provided. She will follow up with community providers and discharge plan of care as prescribed. CM will continue to support discharge planning needs. Readmission - Within the Past 30 Days Yes or No: Y - Date of this Admission Date of Admission: 11/25/21 This admission was: Through ED - Office Visit Since 1st Admission Have you seen your PCP in the office since discharge?: No Date of PCP Appointment: Had an appointment Been Scheduled?: Yes Date of Scheduled Appointment: 11/27/21 - Speicalist Appointments Have you seen any other specialist since your 1st Admission?: No - I. Interview patient and/or Family Difficulty reaching your doctor or getting an office appt?: No Did you feel ready for discharge when you left the last time: Yes Did you call your physician beore you came to the ED?: No - If the patient had a VNA ordered Did the patient have a VNA order?: No - Ask the Care Team Members: What do you think caused the patient to be readmitted: Patient reported a near syncope episode last evening in her basement. Waiting to find out home event recorder readings during that time. - ED visits How many ED visits in the past 12 months: 2
[2021-11-27 09:15] LABS: Lab Add On Test DONE
[2021-11-27 09:50] LABS: Calculated LDL 103 mg/dL (<100); Cholesterol 165 mg/dL (<200); HDL Cholesterol 40 mg/dL (40-60); Triglyceride 114 mg/dL (<150)
--- NOTE | 2021-11-27 11:59 | PT.INNT ---
PT Notes Visit Reasons: Syncope This PT went in to work with patient. Case management was present. Patient adamantly refused to work with PT. States she doesn't need PT and that's not what she's here for. States just wanting her heart fixed. Her nurse Destiney reports patient has been independent with mobility, goes on walks pushing IV pole, and has been safe.
--- NOTE | 2021-11-27 14:21 | DSE_ITS ---
Date of service: 11/27/21 Time of Service: 14:21 DS: Diagnosis Discharge Diagnosis (1) Near syncope: Start date: 11/27/21 Start time: 14:22 Status: Acute Asessment and Plan: Had dizziness with syncope and discharged home on 30 day event recorder. Went to [facility] without phone to event recorder it was off and on dresser when she had dizziness and was brought back to hospital. No syncopal episode, however she had been seen by cardicology prior to discharge and long-term and there was a question of having atrial fibrillation but also she sounds like she does have increased anxiety at times and multiple vagal episodes.? She is on antihypertensive but was hypertensive in the ED. Today she yelling and swearing at staff. When asking about her condition and explaining the importance of keeping the phone close to her she states she understands. She also states dizzy spells while these are happening and she stands up, bends over, they do not improve. She does not lie down. Will continue the cardiac event recorder and have her follow up with Cardiology as scheduled. She refused to work with PT. Ambulating with them could have caused a vagal stimulation or increased HR that could have captured on telemetery however she refused and when asked why she stated because she can do her own PT at home. No syncopal episodes or irregular rhythms today or overnight. No c/o palpitations. (2) Intermittent palpitations: Start date: 11/27/21 Start time: 14:31 Status: Chronic Asessment and Plan: Has intermitttent palpations. Unable to capture on event recorder. Explained to her by myself, RT and CM the importance of keeping the phone on and nearby. This provider also made sure she had extra lead pads and stickers. (3) HTN (hypertension): Start date: 11/27/21 Start time: 14:32 Status: Chronic Asessment and Plan: variable however not above 160's today. discussed with Dr. Umanzor. Discharge Plan Disposition Patient Disposition: HOME Condition: Improving Discharge Details Reason For Visit: Syncope Admit Date/Time: 11/26/21 21:53 Admit Provider: Anson Lombardi Attending Provider: Anson Lombardi Primary Care Provider: Judith Saez Hospital Course Hospital Course: 77-year-old female patient who presented to the ED after just being discharged from this hospital after a syncopal episode while shopping.? Her evaluation was unrevealing and she returned home going to a poker constitution party leaving her cardiac event recorder phone off and on her dresser at home. At the constitution party she felt her heart palpitating or moving in her chest without radiation and was nauseated with diaphoresis and tremors diffusely.? She felt as if she was going to pass out but did not pass out entirely and was lightheaded and weak.ED evaluation was unrevealing acutely and with her recent hospitalization did have unremarkable CT of the head and echocardiogram.? In the past she was told that she did have an abnormal echocardiogram and possible atrial fibrillation with TIAs being a possibility. She had a 30 day event recorder applied at discharge because this is felt to be all cardiac related no further imaging of her head to include MRI/MRA of the brain and carotid Dopplers of the neck were felt warranted.? Patient is a smoker.? She does see cardiology long-term and is on antihypertensives and antiarrhythmics with metoprolol and losartan.?She has had no events over admission, she denies CP, fluttering, dizziness, or syncopal episodes.?She does suffer anxiety and these have made her have syncopal episodes before. She is being discharged home. She has been retrained on 30 day event recorder. follow up with PCP next week. Home Meds and New Rx's Prescriptions: Continued losartan 25 mg Tablet 25 mg PO DAILY 0RF metoprolol tartrate 50 mg Tablet 50 mg PO BID 0RF aspirin 81 mg Tablet 81 mg PO BID 0RF lorazepam 0.5 mg Tablet 0.5 mg PO PRN PRN0RF loratadine 10 mg Tablet 10 mg PO DAILY PRN0RF omeprazole 20 mg Capsule,Delayed Release(Dr/Ec) 20 mg PO DAILY 0RF Discharge Instructions Instructions: A-fib (Atrial Fibrillation) (DC), Heart Palpitations (DC), Syncope (GEN), Dizziness (GEN) Additional Instructions: Follow up with cardiology as scheduled Keep the phone to the cardiac event recorder on and close to you at all times.. PUSH THE BUTTON when you feel anything funny, palpitations, dizziness, fluttering Take slow breaths when you start to feel anxious to help with your anxiety Return to the emergency department immediately if you are having crushing chest pain, Feeling like an elephant sitting on your chest, or passing out. Follow up with your Primary provider next week Activity:: Activity as Tolerated Equipment/Supplies:: 30 day event recorder Diet:: Low Sodium Discharge Orders Discharge Orders: Discharge Order (Routine); Ordered 11/27/21 Ordered By: Jo Vega DS: Summary Time Spent with Patient providing and/or coordinating discharge services: Less than 30 minutes Status at Discharge Functional status at discharge: independent ambulation Overall status at discharge: patient is back to baseline Mental Status: mental status grossly normal Speech and Movement: speech and movement normal Mood: congruent mood Affect: normal affect Exam Const General: cooperative, comfortable and no acute distress Nutritional Appearance: obese Orientation: alert, awake and oriented x3 Eyes Eyelids: eyelids normal Pupils: PERRL EOM: EOM intact bilaterally Neck Neck: normal visual inspection and no JVD Lymphatic: no lymphadenopathy noted Resp Effort & Inspection: normal respiratory effort Auscultation: clear to auscultation bilaterally Cardio Jugular venous pressure: no JVD Rhythm: regular rhythm Heart Sounds: S1 normal GI Auscultation: normal bowel sounds Skin General skin exam: no rashes or lesions noted Neuro General: patient alert, patient awake and patient oriented x3 Cognition: normal cognition Speech: speech normal Gait: normal gait Extrem General: normal to inspection and full ROM Psych Mental Status: mental status grossly normal Speech and Movement: speech and movement normal Mood: congruent mood Affect: normal affect DS: Data Vitals/I&O Vitals and I&O: Vital Signs Temperature 36.7 C 11/27/21 08:03 Temperature Source Tympanic 11/27/21 08:03 Pulse 57 L 11/27/21 08:03 Pulse Rhythm Regular 11/27/21 07:47 Pulse 58 L 11/26/21 22:31 Respiratory Rate 16 11/27/21 08:03 Respiratory Effort Non-Labored 11/27/21 07:47 Respiratory Depth Normal 11/27/21 07:47 Respiratory Pattern Normal 11/27/21 07:47 Blood Pressure 145/85 H 11/27/21 08:03 Blood Pressure Mean 86 11/26/21 22:30 Blood Pressure Position Sitting 11/26/21 19:52 Pulse Oximetry 98 11/27/21 08:03 Oxygen Delivery Method Room Air 11/27/21 08:03 Oxygen Flow Rate 0 11/27/21 08:03 Pain Level 0 11/27/21 08:03 Intake & Output 11/26/21 11/27/21 11/27/21 23:59 11:59 23:59 Intake Total 1610 / 2100 490 / 2100 Balance 1610 / 2100 490 / 2100 Weight 111.13 kg Intake: IV 1000 / 1000 Oral 610 / 1100 490 / 1100 Other: Urine Color Yellow Urine Appearance Clear Comment Per patient she has been voiding Data Completed and Pending Labs on day of discharge: Labs from last 24 hours 11/27/21 11/27/21 11/27/21 06:05 06:05 06:05 WBC RBC Hgb Hct MCV MCH MCHC RDW Plt Count MPV Immature Gran % Neutrophils % Lymphocytes % Monocytes % Eosinophils % Basophils % Nucleated RBC % Absolute Neutrophils Absolute Lymphocytes Absolute Monocytes Absolute Eosinophils Absolute Basophils Sodium Potassium Chloride Carbon Dioxide Anion Gap BUN Creatinine Estimated GFR/1.73 m2 Glucose Hemoglobin A1c 6.0 H Calcium Magnesium Total Bilirubin AST ALT Alkaline Phosphatase Troponin I Total Protein Albumin Triglycerides 114 Total Cholesterol 165 LDL Cholesterol, Calc 103 H HDL Cholesterol 40 TSH Free T4 Urine Color Urine Clarity Urine pH Ur Specific Lyons Urine Protein Urine Ketones Urine Blood Urine Nitrite Urine Bilirubin Urine Urobilinogen Ur Leukocyte Esterase Urine RBC Urine WBC Ur Epithelial Cells Urine Crystals Urine Bacteria Urine Casts Urine Mucus Urine Other Ur Culture Indicated? Urine Glucose COVID-19 Source SARS-CoV-2 (PCR) Add-On Test Request DONE 11/27/21 11/27/21 11/27/21 06:05 06:05 01:07 WBC 4.63 RBC 4.58 Hgb 13.9 Hct 42.6 MCV 93.0 MCH 30.3 MCHC 32.6 RDW 13.6 Plt Count 167 MPV 11.4 H Immature Gran % 0.4 Neutrophils % 54.0 Lymphocytes % 32.2 Monocytes % 8.4 Eosinophils % 3.7 Basophils % 1.3 Nucleated RBC % 0 Absolute Neutrophils 2.50 Absolute Lymphocytes 1.49 Absolute Monocytes 0.39 Absolute Eosinophils 0.17 Absolute Basophils 0.06 Sodium 141 Potassium 3.8 Chloride 108 H Carbon Dioxide 26.3 Anion Gap 6.7 BUN 10 Creatinine 0.6 D Estimated GFR/1.73 m2 >= 60.00 Glucose 100 Hemoglobin A1c Calcium 8.5 Magnesium Total Bilirubin 0.5 AST 18 ALT 12 L Alkaline Phosphatase 72 Troponin I < 50 Cancelled Total Protein 5.9 L Albumin 3.1 L Triglycerides Total Cholesterol LDL Cholesterol, Calc HDL Cholesterol TSH Free T4 Urine Color Urine Clarity Urine pH Ur Specific Lyons Urine Protein Urine Ketones Urine Blood Urine Nitrite Urine Bilirubin Urine Urobilinogen Ur Leukocyte Esterase Urine RBC Urine WBC Ur Epithelial Cells Urine Crystals Urine Bacteria Urine Casts Urine Mucus Urine Other Ur Culture Indicated? Urine Glucose COVID-19 Source SARS-CoV-2 (PCR) Add-On Test Request 11/26/21 11/26/21 11/26/21 23:49 23:35 20:28 WBC 5.65 RBC 5.03 Hgb 15.4 Hct 47.1 H MCV 93.6 MCH 30.6 MCHC 32.7 RDW 13.4 Plt Count 198 MPV 11.2 H Immature Gran % 0.5 Neutrophils % 62.9 Lymphocytes % 24.4 Monocytes % 7.8 Eosinophils % 3.5 Basophils % 0.9 Nucleated RBC % 0 Absolute Neutrophils 3.55 Absolute Lymphocytes 1.38 Absolute Monocytes 0.44 Absolute Eosinophils 0.20 Absolute Basophils 0.05 Sodium Potassium Chloride Carbon Dioxide Anion Gap BUN Creatinine Estimated GFR/1.73 m2 Glucose Hemoglobin A1c Calcium Magnesium Total Bilirubin AST ALT Alkaline Phosphatase Troponin I < 50 Total Protein Albumin Triglycerides Total Cholesterol LDL Cholesterol, Calc HDL Cholesterol TSH Free T4 Urine Color Urine Clarity Urine pH Ur Specific Lyons Urine Protein Urine Ketones Urine Blood Urine Nitrite Urine Bilirubin Urine Urobilinogen Ur Leukocyte Esterase Urine RBC Urine WBC Ur Epithelial Cells Urine Crystals Urine Bacteria Urine Casts Urine Mucus Urine Other Ur Culture Indicated? Urine Glucose COVID-19 Source Nasopharynx SARS-CoV-2 (PCR) Negative Add-On Test Request 11/26/21 11/26/21 11/26/21 20:28 20:15 06:05 WBC RBC Hgb Hct MCV MCH MCHC RDW Plt Count MPV Immature Gran % Neutrophils % Lymphocytes % Monocytes % Eosinophils % Basophils % Nucleated RBC % Absolute Neutrophils Absolute Lymphocytes Absolute Monocytes Absolute Eosinophils Absolute Basophils Sodium 140 Potassium 3.8 Chloride 104 Carbon Dioxide 28.7 Anion Gap 7.3 BUN 14 Creatinine 0.9 Estimated GFR/1.73 m2 >= 60.00 Glucose 143 H Hemoglobin A1c Calcium 8.8 Magnesium 2.1 Total Bilirubin 0.5 AST 17 ALT 16 Alkaline Phosphatase 93 Troponin I < 50 Total Protein 7.0 Albumin 3.7 Triglycerides Total Cholesterol LDL Cholesterol, Calc HDL Cholesterol TSH 4.60 H Free T4 1.01 Urine Color Straw Urine Clarity Clear Urine pH 6.5 Ur Specific Lyons 1.010 Urine Protein Negative Urine Ketones Negative Urine Blood Trace-intact H Urine Nitrite Negative Urine Bilirubin Negative Urine Urobilinogen 0.2 Ur Leukocyte Esterase Negative Urine RBC Negative Urine WBC Negative Ur Epithelial Cells Rare Urine Crystals Negative Urine Bacteria Negative Urine Casts Negative Urine Mucus Negative Urine Other Negative Ur Culture Indicated? No Urine Glucose Negative COVID-19 Source SARS-CoV-2 (PCR) Add-On Test Request PFSH All Active Problems HTN (hypertension) (Chronic) Intermittent palpitations (Chronic) Near syncope (Acute) Syncope (Chronic) Social History Smoking/Tobacco Use Status: Current every day Tobacco Type: cigarettes Smoking risk assessment performed?: Yes Alcohol Intake: current Alcohol Intake frequency: holidays/special occasions only Substance use type: does not use Do you feel safe at home: Yes Do you feel safe in your relationship?: Yes
--- NOTE | 2021-11-27 14:50 | PDOC.CMDIS ---
- If Service Date Differs Date of service: 11/27/21 Time of Service: 14:50 LACE Index Scoring Tool - Questions: Length of Stay (in days): 1 Acuity (Admit via E.D.?): Yes E.D. Visits: 2 - Answers: Total Score: 6 Risk of Readmission: Low Risk Care Management Discharge Reason for Hospitalization: Syncope Discharge Plan: Discharge home with 30 day cardiac event recorder via private vehicle with family. Follow up with PCP next week and cardiology as scheduled. Resume activity as tolerated and recommend a low sodium diet. Patient/Family Education Needs: Review discharge instructions, limitations, medications and plan to follow up with community providers. ask me three.
[2021-11-27 14:56] VITALS: PULSE 60
== END 2021-11-27 15:26 | disposition home or self-care (01) ==
LOC: ER 19:56 → MS 22:45
PROVIDERS: Nurse Practitioner Family; Admitting Provider Family Medicine; Emergency Provider Emergency Medicine; PCP Nurse Practitioner Family; Visit Provider Family Medicine
DX: R55 Syncope and collapse (principal); I10 Essential (primary) hypertension; R00.2 Palpitations; F17.210 Nicotine dependence, cigarettes, uncomplicated; F41.9 Anxiety disorder, unspecified; Z20.822 Contact with and (suspected) exposure to COVID-19; Z79.899 Other long term (current) drug therapy
CPT/HCPCS: 36415; 80053; 80061; 87635; 93005; 93270; 96361; 96374; 99284; 99285; U0005; 81003; 81015; 83036; 83735; 84439; 84443; 84484; 85025; 93010; 93306; 99217; 99219; G0378; J2060

== ENCOUNTER 2021-12-29 08:17 | Outpatient (CLI) | payer MEDICARE, SELFPAY | END 2021-12-29 08:18 | LOC: CARDO 02-17 11:01 | PROVIDERS: PCP Nurse Practitioner Family; Referring Provider Internal Medicine; Visit Provider Internal Medicine Cardiovascular Disease | DX: R55 Syncope and collapse (principal) | CPT/HCPCS: 93272 ==